=== PATIENT | female | born 1955 | race Caucasian/White ===

== ENCOUNTER 2021-07-16 10:04 | Inpatient (IN) | payer OTHER ==
--- OUTSIDE RECORDS SUMMARY | 2021-07-16 10:07 | XMS REPORT | Continuity of Care Document ---
:1955 Author Organization [facility] t Address [address] [place] [address] Care Team Providers Name Role Phone ANITRA EMERY Primary Care Physician Unavailable ANITRA EMERY Attending Clinician Unavailable Payers Payer Name Policy Type Policy Number Effective Date Expiration Date S lorena [employer] [id number] 2019 00:00:00 Problems This patient has no known problems. Allergies, Adverse Reactions, Alerts Allergy Allergy Status Severity Reaction(s) Onset Inactive Treating Comm ents Source Name Type Date Date Clinician IODINE Allergy Active Other [facility] AND 11-28 IODIDE 00:00: CONTAINI 00 NG PRODUCTS Medications This patient has no known medications. Vital Signs Vital Name Observation Time Observation Value Comments Source HEIGHT 2021-02-15 14:50:00 157.5 cm WEIGHT 2021-02-15 14:50:00 118.48 kg HEIGHT 2020-11-16 13:51:00 157.5 cm WEIGHT 2020-11-16 13:51:00 117.708 kg HEIGHT 2020-07-31 15:15:00 157.5 cm WEIGHT 2020-07-31 15:15:00 120.203 kg WEIGHT 2020-01-17 00:00:00 121.836 kg Procedures This patient has no known procedures. Encounters Start End Encounter Admission Attending Care Care Encounter Source Date/Time Date/Time Type Type Clinicians Facility Department ID 2021-05-31 2021-05-31 Outpatient [facility] [id number] [address] 00:00:00 00:00:00 [facility] 2021-02-15 2021-02-15 Outpatient [facility] [id number] 00[facility]00:00 00:00:00 [facility] 2020-12-01 2020-12-01 Outpatient [facility]ULY, [facility] [id number] 00:00:00 00:00:00 [facility] 2020-11-16 2020-11-16 Outpatient [facility]UL[facility] [id number] 00:00:00 00:00:00 [facility] 2020-07-31 2020-07-31 Outpatient [facility] [id number] 00:00:00 00:00:00 [facility] 2020-05-01 2020-05-01 Outpatient [facility] [id number] 00:00:00 00:00:00 [facility] 2020-02-06 2020-02-06 Outpatient MELYSSA EMERY, [facility] [id number] [facility] 00:00[facility] 00[facility]00 [facility] 2020-01-30 2020-01-30 Outpatient YULY, [facility] [id number] [facility] 00:00:00 00:00:00 [facility] 2020-01-30 2020-01-30 Outpatient MELYSSA EMERY, [facility] [id number] [facility] 00:00:00 00:00:00 [facility] 2020-01-23 2020-01-23 Outpatient EL [facility] [id number] [facility] 00:00:00 00:00:00 2020-01-17 2020-01-17 Outpatient [facility] [id number] 00:00[facility]00 00:00:00 [id number] [facility] 2020-01-17 2020-01-17 Outpatient [facility]ULY[facility] [id number] 00:00:00 00:00:00 [facility] 2018-11-06 2018-11-06 Outpatient [facility] [id number] [place] 00:00:00 00:00:00 Health 2018-06-08 2018-06-08 Outpatient [facility] [id number] [place] 00:00:00 00:00:00 Health 2018-05-30 2018-05-30 Outpatient [facility] [id number] [place] 00:00:00 00:00:00 [facility] 2018 2018 Outpatient [facility] [id number] [place] 00:00:00 00:00:00 [facility] 2018-05-18 2018-05-18 Outpatient [facility] [id number] [place] 12:59:36 12:59:36 [facility] 2018-05-17 2018-05-17 Outpatient [facility] [id number] [place] 10:19:25 10:19:25 [facility] 2018-05-17 2018-05-17 Outpatient [facility] [id number] [place] 10:09:31 10:09:31 [facility] 2018-05-16 2018-05-16 Outpatient [facility] [id number] [place] 00:00:00 00:00:00 [facility] 2018-05-14 2018-05-14 Outpatient [facility] [id number] [place] 00:00:00 00:00:00 [facility] 2018-05-09 2018-05-09 Outpatient [facility] [id number] [place] 13:04:39 13:04:39 [facility] 2018-05-09 2018-05-09 Outpatient [facility] [id number] [place] 11:56:43 11:56:43 [facility] 2018-04-26 2018-04-26 Outpatient [facility] [id number] [place] 00:00:00 00:00:00 [facility] 2018-04-24 2018-04-24 Outpatient [facility] [id number] [place] 12:36:46 12:36:46 [facility] 2018-04-24 2018-04-24 Outpatient [facility] [id number] [place] 11:34:13 11:34:13 [facility] 2018-04-13 2018-04-13 Outpatient [facility] [id number] [place] 00:00:00 00:00:00 [facility] 2018-04-09 2018-04-09 Outpatient [facility] [id number] [place] 00:00:00 00:00:00 [facility] 2018-04-09 2018-04-09 Outpatient [facility] [id number] [place] 00:00:00 00:00:00 [facility] 2018-04-02 2018-04-02 Outpatient [facility] [id number] [place] 09:56:20 09:56:20 [facility] 2018-03-27 2018-03-27 Outpatient [facility] [id number] [place] 13:35:42 13:35:42 [facility] 2018-03-12 2018-03-12 Outpatient [facility] [id number] [place] 00:00:00 00:00:00 [facility] 2018-03-12 2018-03-12 Outpatient [facility] [id number] [place] 00:00:00 00:00:00 [facility] 2018-03-12 2018-03-12 Outpatient [facility] [id number] [place] 00:00:00 00:00:00 [facility] 2018-03-06 2018-03-06 Outpatient [facility] [id number] [place] 08:53:09 08:53:09 [facility] 2018-02-19 2018-02-19 Outpatient [facility] [id number] [place] 09:40:24 09:40:24 [facility] 2018-02-19 2018-02-19 Outpatient [facility] [id number] [place] 08:47:43 08:47:43 [facility] 2018-02-19 2018-02-19 Outpatient [facility] [id number] [place] 00:00:00 00:00:00 [facility] 2018-02-16 2018-02-16 Outpatient [facility] [id number] [place] 00:00:00 00:00:00 [facility] 2018-02-15 2018-02-15 Outpatient [facility] [id number] [place] 00:00:00 00:00:00 [facility] 2018-02-12 2018-02-12 Outpatient [facility] [id number] [place] 14:32:28 14:32:28 [facility] 2018-02-12 2018-02-12 Outpatient [facility] [id number] [place] 13:10:55 13:10:55 [facility] 2018-02-12 2018-02-12 Outpatient [facility] [id number] [place] 00:00:00 00:00:00 [facility] 2018-02-12 2018-02-12 Outpatient [facility] [id number] [place] 00:00:00 00:00:00 [facility] 2018-02-12 2018-02-12 Outpatient [facility] [id number] [place] 00:00:00 00:00:00 [facility] 2018-02-12 2018-02-12 Outpatient [facility] [id number] [place] 00:00:00 00:00:00 [facility] 2018-02-05 2018-02-05 Outpatient [facility] [id number] [place] 00:00:00 00:00:00 [facility] 2018-02-05 2018-02-05 Outpatient [facility] [id number] [place] 00:00:00 00:00:00 [facility] 2018-01-25 2018-01-25 Outpatient [facility] [id number] [place] 10:15:17 10:15:17 [facility] 2018-01-25 2018-01-25 Outpatient [facility] [id number] [place] 00:00:00 00:00:00 [facility] 2018-01-23 2018-01-23 Outpatient [facility] [id number] [place] 11:58:10 11:58:10 [facility] 2018-01-19 2018-01-19 Outpatient [facility] [id number] [place] 00:00:00 00:00:00 [facility] 2018-01-17 2018-01-17 Outpatient [facility] [id number] [place] 10:09:29 10:09:29 [facility] 2018-01-17 2018-01-17 Outpatient [facility] [id number] [place] 00:00:00 00:00:00 [facility] 2017-11-22 2017-11-22 Outpatient [facility] [id number] [place] 14:33:58 14:33:58 [facility] 2017-11-15 2017-11-15 Outpatient [facility] [id number] [place] 13:34:47 13:34:47 [facility] 2017-11-15 2017-11-15 Outpatient [facility] [id number] [place] 12:40:27 12:40:27 [facility] 2017-11-08 2017-11-08 Outpatient [facility] [id number] [place] 16:03:05 16:03:05 [facility] 2017-11-08 2017-11-08 Outpatient [facility] [id number] [place] 15:18:47 15:18:47 [facility] 2017-11-07 2017-11-07 Outpatient [facility] [id number] [place] 00:00:00 00:00:00 [facility] 2017-09-15 2017-09-15 Outpatient [facility] [id number] [place] 12:39:22 12:39:22 [facility] 2017-09-08 2017-09-08 Outpatient [facility] [id number] [place] 09:39:54 09:39:54 [facility] 2017-07-04 2017-07-04 Outpatient [facility] [id number] [place] 13:03:48 13:03:48 [facility] 2017-06-21 2017-06-21 Outpatient [facility] [id number] [place] 14:36:40 14:36:40 [facility] 2017-06-21 2017-06-21 Outpatient [facility] [id number] [place] 00:00:00 00:00:00 [facility] 2017-06-15 2017-06-15 Outpatient [facility] [id number] [place] 13:19:27 13:19:27 [facility] 2017-05-11 2017-05-11 Outpatient [facility] [id number] [place] 00:00:00 00:00:00 [facility] 2017-04-17 2017-04-17 Outpatient [facility] [id number] [place] 00:00:00 00:00:00 [facility] 2017-04-12 2017-04-12 Outpatient [facility] [id number] [place] 14:19:41 14:19:41 [facility] 2017-04-05 2017-04-05 Outpatient [facility] [id number] [place] 15:51:02 15:51:02 [facility] 2017-04-05 2017-04-05 Outpatient [facility] [id number] [place] 15:09:21 15:09:21 [facility] 2017-03-21 2017-03-21 Outpatient [facility] [id number] [place] 13:09:42 13:09:42 [facility] 2017-03-15 2017-03-15 Outpatient [facility] [id number] 00:00:00 00:00:00 [facility] 2017-03-10 2017-03-10 Outpatient [facility] [id number] [place] 14:53:57 14:53:57 [facility] 2017-03-06 2017-03-06 Outpatient [facility] [id number] [place] 00:00:00 00:00:00 [facility] 2017-03-02 2017-03-02 Outpatient [facility] [id number] [place] 10:34:06 10:34:06 [facility] 2017-02-20 2017-02-20 Outpatient [facility] [id number] [place] 13:02:41 13:02:41 [facility] 2017-02-14 2017-02-14 Outpatient [facility] [id number] [place] 00:00:00 00:00:00 [facility] 2017-02-13 2017-02-13 Outpatient [facility] [id number] [place] 14:08:25 14:08:25 [facility] 2017-02-09 2017-02-09 Outpatient [facility] [id number] [place] 10:01:38 10:01:38 [facility] 2017-01-19 2017-01-19 Outpatient [facility] [id number] [place] 00:00:00 00:00:00 [facility] 2017-01-06 2017-01-06 Outpatient [facility] [id number] [place] 11:15:38 11:15:38 [facility] 2017-01-04 2017-01-04 Outpatient [facility] [id number] [place] 13:12:17 13:12:17 [facility] 2016-12-19 2016-12-19 Outpatient [facility] [id number] [place] 09:11:30 09:11:30 Health Results Test Description Test Time Test Comments Results Result [facility] e Comments MM, DIGITAL, 2020-02-14 Diagnostic MRN#: [id number], SCREENING, 15:16:00 workup per [id number] - WITH SAAD, radiologist?->Ye MM, DIGITAL, MAMMO, BILATERAL sReason for SCREENING, WITH INCLUDING CAD Exam:->visit for SAAD, BILATERAL screening INCLUDING CAD BILATERAL DIGITAL SCREENING MAMMOGRAM 3D/2D WITH CAD: 02/06/2020 Comparison is made to exams dated: 02/20/2017 mammogram and 02/18/2016 mammogram - [facility]. There are scattered fibroglandular elements in both breasts that could obscure a lesion on mammography. Tomosynthesis 3D imaging of the breast was also performed. Current study was also evaluated with a Computer Aided Detection (CAD) system. No significant masses, calcifications, or other findings are seen in either breast. There has been no significant interval change. IMPRESSION: NEGATIVEThere is no mammographic evidence of malignancy. A 1 year screening mammogram is recommended. Anamika Santana M.D. as/penrad:02/14/2020 15:16:32 Normal BiRad 1-2 Mammogram BI-RADS: 1 Negative , SPINE, 2020-01-30 Reason for FINAL REPORT PATIENT LUMBAR, COMPLETE 15:31:00 Exam:->mid and ID: [id number] (MIN 4 VIEWS) lower back pain Lumbar spine series History provided: Back pain The quality of the radiographs is degraded by the patient's large body habitus. Lumbar vertebra show no fracture or subluxation. Rotatory curvature of the lower thoracic and upper lumbar spine convex to the left. No significant disc space narrowing. Signed: Richard Hunter MDReport Verified Date/Time: 01/30/2020 15:31:10 Reading Location: [facility] Diagnostic Imaging Reading Room - [facility] 1.310.12 , SPINE, 2020-01-30 Reason for FINAL REPORT PATIENT THORACIC, 2 VIEWS 15:31:00 Exam:->mid back ID: [id number] pain Thoracic spine 2 views History provided: Back pain Generalized kyphotic curvature of the thoracic spine. No fracture or subluxation. No lytic or blastic findings. Signed: Richard Hunter Verified Date/Time: 01/30/2020 15:31:55 Reading Location: [facility] Diagnostic Imaging Reading Room - [facility] 1.310.12
[2021-07-16 11:53] LABS: Absolute Lymphocytes (CBC) 0.6 K/uL (0.7-4.9); Basophils % 0.5 % (0-1.3); Hematocrit 35.5 % (36.0-45.0); Lymphocytes % 5.2 % (15.3-44.8); MPV 8.1 fL (7.6-11.3); RBC Red Blood Cell Count 4.89 M/uL (3.86-4.86)
[2021-07-16 12:05] LABS: Albumin 3.8 g/dL (3.4-5.0); Bilirubin Direct 0.2 mg/dL (0-0.2); Bilirubin Total 0.7 mg/dL (0.2-1.0); Potassium 5.4 mmol/L (3.5-5.1); Protein, Total 7.8 g/dL (6.4-8.2)
--- NOTE | 2021-07-16 12:16 | RAD REPORT ---
EXAM DESCRIPTION: CT - Abdomen Pelvis Wo Contrast - 07/16/2021 11:54 am CLINICAL HISTORY: Abdominal pain COMPARISON: None TECHNIQUE: Computed axial tomography of the abdomen and pelvis was obtained. IV and oral contrast we re not requested. All CT scans are performed using dose optimization technique as appropriate and may include automated exposure control or mA/KV adjustment according to patient size. FINDINGS: The evaluation of solid organs, vessels and bowel is limited secondary to the lack of con trast administration. Umbilical hernia contains transverse colon. The colon distal to the hernia is decompressed. The colon within the hernia and ascending colon is mildly dilated containing stool. The neck of the hernia gareth sures 3.3 centimeters. The liver, spleen, pancreas, adrenals and kidneys appear grossly normal. There is no evidence of diverticulitis. Cholecystectomy IMPRESSION: Umbilical hernia resulting in an obstruction of the transverse colon
[2021-07-16] MEDS ORDERED: ONDANSETRON 4 MG/2 ML VIAL ONE ×2 (12:21→16:55)
[2021-07-16] MEDS ORDERED: MORPHINE 4 MG/ML SYR ONE ×2 (12:21→16:55)
[2021-07-16] MEDS ORDERED: NA CHLORIDE 0.9% 500 ML ONE (12:21)
[2021-07-16] MEDS ORDERED: GLUCAGON 1 MG/VIAL IM PRN (12:48)
[2021-07-16] MEDS ORDERED: D50W 25 GM/50 ML SYRINGE IV PRN (12:48)
[2021-07-16] MEDS ORDERED: INSULIN -REGULAR HUMAN 100 UNIT in NA CHLORIDE 0.9% 100 ML IV SCH (13:00)
[2021-07-16] MEDS ORDERED: INSULIN -REGULAR HUMAN 50 UNIT/0.5 ML ML ONE (13:03)
[2021-07-16] MEDS ORDERED: NA CHLORIDE 0.9% 100 ML ONE ×2 (13:06→21:01)
[2021-07-16] MEDS ORDERED: PIPERACIL/TAZO 3.375 GM VIAL IV ONE (13:06)
[2021-07-16] MEDS ORDERED: NA CHLORIDE 0.9% 1,000 ML ONE (13:11)
--- NOTE | 2021-07-16 13:11 | ER ---
Nurse's Notes [facility] Name: Radha Jean Age: 66 yrs Sex: Female : 1955 Arrival Date: 07/16/2021 Time: 10:06 Bed 27 Private MD: Diagnosis: Bowel obstruction, DKA Presentation: 07/16 10:18 Chief complaint: Patient states: lower abd pain and constipation that began last night. ss Pt reports a HX of an abd hernia and sttates that is where most of her pain is originating from. Nausea that began this am. Last BM was a very small amount last night. Coronavirus screen: Client denies travel out of the [place] in the last 14 days. Ebola Screen: Patient denies exposure to infectious person. Patient denies travel to an Ebola-affected area in the 21 days before illness onset. Initial Sepsis Screen: Does the patient meet any 2 criteria? No. Patient's initial sepsis screen is negative. Does the patient have a suspected source of infection? No. Patient's initial sepsis screen is negative. Risk Assessment: Do you want to hurt yourself or someone else? Patient reports no desire to harm self or others. Onset of symptoms was July 15, 2021. 10:18 Method Of Arrival: Wheelchair ss 10:18 Acuity: EZIO 3 ss Triage Assessment: 19:35 General: Appears in no apparent distress. comfortable. mr2 Historical: - Allergies: 10:23 Iodine; ss - PMHx: 10:23 Hypertensive disorder; Hypothyroidism; Diabetes mellitus; abd hernia; Thyroid CA; ss - PSHx: 10:23 Thyroidectomy; Cholecystectomy; R ankle recon; ss - Immunization history:: Client reports receiving the 2nd dose of the Covid vaccine. - Social history:: Smoking status: Patient denies any tobacco usage or history of. Screenin:29 Abuse screen: Denies threats or abuse. Abuse screen: Denies threats or abuse. vg1 Nutritional screening: No deficits noted. Tuberculosis screening: No symptoms or risk factors identified. Fall Risk No fall in past 12 months (0 pts). No secondary diagnosis (0 pts). IV access (20 points). Ambulatory Aid- None/Bed Rest/Nurse Assist (0 pts). Gait- Normal/Bed Rest/Wheelchair (0 pts) Mental Status- Oriented to own ability (0 pts). Total Soto Fall Scale indicates No Risk (0-24 pts). Assessment: 11:27 General: Appears in no apparent distress. uncomfortable, Behavior is calm, cooperative. vg1 Pain: Complains of pain in umbilical area, right lower quadrant and left lower quadrant Pain currently is 10 out of 10 on a pain scale. Pain began 1 day ago. Noted to be grimacing, guarding. Neuro: Level of Consciousness is awake, alert, obeys commands, Oriented to person, place, time, situation. Cardiovascular: Patient's skin is warm and dry. Respiratory: Airway is patent Respiratory effort is even, unlabored. GI: Abdomen is flat, obese, Bowel sounds present X 4 quads. Abdomen is tender to palpation in umbilical area, right lower quadrant and left lower quadrant Reports constipation, nausea, vomiting, since yesterday 07/15/21 last BM was 07/14/21 Patient currently denies diarrhea. : No signs and/or symptoms were reported regarding the genitourinary system. EENT: No signs and/or symptoms were reported regarding the EENT system. Derm: Skin is intact, is healthy with good turgor. Musculoskeletal: Circulation, motion, and sensation intact. 12:41 Reassessment: Patient appears in no apparent distress at this time. No changes from vg1 previously documented assessment. Patient and/or family updated on plan of care and expected duration. Pain level reassessed. Patient is alert, oriented x 3, equal unlabored respirations, skin warm/dry/pink. 14:13 Reassessment: Patient appears in no apparent distress at this time. No changes from vg1 previously documented assessment. Patient and/or family updated on plan of care and expected duration. Pain level reassessed. Patient is alert, oriented x 3, equal unlabored respirations, skin warm/dry/pink. 15:42 Reassessment: Patient appears in no apparent distress at this time. Patient and/or vg1 family updated on plan of care and expected duration. Pain level reassessed. Patient is alert, oriented x 3, equal unlabored respirations, skin warm/dry/pink. At 1320 administered the Insulin drip at 10 units/ hr per protocol. At 1420 BG was 488 and decreased Insulin drip to 5 units/hr per protocol. At 1535 BG was 429 and increased Insulin drip to 6 units/ hr per protocol. Pt states ABD pain. Provider notified.. 16:44 Reassessment: Patient appears in no apparent distress at this time. Patient and/or vg1 family updated on plan of care and expected duration. Pain level reassessed. Patient is alert, oriented x 3, equal unlabored respirations, skin warm/dry/pink. Pt BG 382 increased Insulin drip to 7 units/ hr per protocol. pt c/o back pain. provider notified. 16:52 Reassessment: Received VO from Dr Fuentes to administer zofran 4 mg IVP x1 and Morphine vg1 4 mg IVP x1; to place a hay for pt due to pt unable to urinate for approximately 3.5 hours. 17:40 Reassessment: Patient appears in no apparent distress at this time. Patient and/or vg1 family updated on plan of care and expected duration. Pain level reassessed. Patient is alert, oriented x 3, equal unlabored respirations, skin warm/dry/pink. Rates pain 5/10; BG was 305 and Insulin drip rate at 7 units/ hr per protocol. 18:32 Reassessment: Patient appears in no apparent distress at this time. Patient and/or vg1 family updated on plan of care and expected duration. Pain level reassessed. Patient is alert, oriented x 3, equal unlabored respirations, skin warm/dry/pink. BG 319; Insulin drip at 8 units/hr per protocal. Vital Signs: 10:18 BP 120 / 53; Pulse 99; Resp 16; Temp 98.3(TE); Pulse Ox 100% on R/A; Weight 117.93 kg; ss Height 5 ft. 3 in. (160.02 cm); Pain 10/10; 11:30 BP 127 / 56; Pulse 102; Resp 18; Pulse Ox 99% ; vg1 12:34 BP 118 / 45; Pulse 96; Resp 18; Temp 98.6(O); Pulse Ox 99% ; mh5 13:00 BP 106 / 48; Pulse 91; Resp 20; Pulse Ox 98% ; vg1 15:38 BP 123 / 56; Pulse 98; Resp 20; Pulse Ox 99% ; vg1 16:30 BP 126 / 56; Pulse 98; Resp 20; Pulse Ox 99% ; vg1 17:30 BP 124 / 54; Pulse 98; Resp 18; Pulse Ox 100% ; vg1 18:00 BP 120 / 55; Pulse 92; Resp 16; Pulse Ox 99% ; vg1 10:18 Body Mass Index 46.06 (117.93 kg, 160.02 cm) ED Course: 10:06 Patient arrived in ED. as 10:10 Dakota Fuentes MD is Attending Physician. kdr 10:23 Triage completed. ss 10:23 Arm band placed on right wrist. ss 11:04 Jackie August, RN is Primary Nurse. vg1 11:19 Missed attempt(s): 20 gauge in left antecubital area. vg1 11:26 Initial lab(s) drawn, by me, sent to lab. Inserted saline lock: 22 gauge in right vg1 antecubital area, using aseptic technique. Blood collected. 11:29 Patient has correct armband on for positive identification. Bed in low position. Call vg1 light in reach. Side rails up X2. Adult w/ patient. 11:54 CT Abd/Pelvis - Without Contrast In Process Unspecified. EDMS 13:08 Shabana Rivera MD is Hospitalizing Provider. kdr 13:56 Inserted saline lock: 22 gauge in left antecubital area, using aseptic technique. vg1 13:57 COVID swab sent to lab. vg1 17:06 Hay cath inserted, using sterile technique, 16 Fr., by me, balloon inflated, to vg1 gravity drainage, returned gianna urine. Patient tolerated well. 19:14 Report given to BART LI. vg1 Administered Medications: 12:35 Drug: Zofran (Ondansetron) 4 mg Route: IVP; Site: right antecubital; vg1 13:58 Follow up: Response: No adverse reaction; Marked relief of symptoms vg1 12:35 Drug: NS 0.9% 500 ml Route: IV; Rate: bolus; Site: right antecubital; vg1 13:58 Follow up: IV Status: Completed infusion; IV Intake: 500ml vg1 12:37 Drug: morphine 4 mg Route: IVP; Site: right antecubital; vg1 13:58 Follow up: Response: No adverse reaction; Marked relief of symptoms vg1 13:10 Drug: Insulin Regular Human 10 units {Co-Signature: bp (Maldonado Hernandez RN).} Route: IVP; vg1 Site: right antecubital; 16:50 Follow up: Response: Blood sugar is lowered vg1 13:18 Drug: NS 0.9% 1000 ml Route: IV; Rate: 125 ml/hr; Site: right antecubital; vg1 13:20 Drug: Insulin Drip - (Insulin Regular Human 100 units, NS 0.9% 100 ml) {Co-Signature: vg1 bp (Maldonado Hernandez RN).} Route: IV; Rate: calculated rate; Site: right antecubital; 14:07 Drug: Zosyn (piperacillin-tazobactam) 3.375 grams Route: IVPB; Infused Over: 60 mins; vg1 Site: left antecubital; 16:51 Follow up: IV Status: Completed infusion; IV Intake: 100ml vg1 17:08 Drug: Zofran (Ondansetron) 4 mg Route: IVP; Site: left antecubital; vg1 17:10 Drug: morphine 4 mg Route: IVP; Site: left antecubital; vg1 Intake: 13:58 IV: 500ml; Total: 500ml. vg1 16:51 IV: 100ml; Total: 600ml. vg1 Output: 17:21 Urine: 600ml (Hay); Total: 600ml. vg1 Outcome: 13:11 Decision to Hospitalize by Provider. kdr 07/18 15:50 Patient left the ED. em1 Signatures: Dispatcher [employer] EDMS Dakota Fuentes MD MD kdr Martinez, Amelia as Martinez, Eric em1 Jocelyn Donahue RN RN ss Martinez, Maria Jackie Alvarado RN RN vg1 Bart Anna RN RN mr2 Maldonado Hernandez RN bp Corrections: (The following items were deleted from the chart) 07/16 12:40 12:35 NS 0.9% 500 ml IV at bolus in left antecubital vg1 vg1
--- NOTE | 2021-07-16 13:12 | EDPHYS ---
Physician Documentation [facility] Name: Radha Jean Age: 66 yrs Sex: Female : 1955 Arrival Date: 07/16/2021 Time: 10:06 Bed 27 Private MD: ED Physician Dakota Fuentes HPI: 07/16 11:36 This 66 yrs old Female presents to ER via Wheelchair with complaints of Constipation, kdr Vomiting. 11:36 The patient presents to the emergency department with nausea, that is mild, vomiting, kdr that is intermittent, abdominal pain, of the umbilical area. Onset: The symptoms/episode began/occurred last night. Possible causes: Incarcerated umbilical hernia. The symptoms are aggravated by movement, pressure, The symptoms are alleviated by nothing. Associated signs and symptoms: Pertinent positives: abdominal pain, nausea, vomiting. Severity of symptoms: At their worst the symptoms were mild moderate just prior to arrival, in the emergency department the symptoms are unchanged. The patient has experienced similar episodes in the past, a few times, Normally she can reduce her umbilical hernia, she is able to resolve the issue but has not been able to do so this time. The patient has not recently seen a physician. Patient started to have abdominal pain last evening. She had some nausea vomiting with it. She does not believe she has been passing any stool or gas since the onset of the pain. She has a history of a periumbilical hernia which normally she is able to reduce and resolve any associated discomfort. This time however she has not been able to reduce the hernia or resolve her discomfort. Historical: - Allergies: 10:23 Iodine; ss - PMHx: 10:23 Hypertensive disorder; Hypothyroidism; Diabetes mellitus; abd hernia; Thyroid CA; ss - PSHx: 10:23 Thyroidectomy; Cholecystectomy; R ankle recon; ss - Immunization history:: Client reports receiving the 2nd dose of the Covid vaccine. - Social history:: Smoking status: Patient denies any tobacco usage or history of. ROS: 11:36 Constitutional: Negative for fever, chills, and weight loss, Eyes: Negative for injury, kdr pain, redness, and discharge, Neck: Negative for injury, pain, and swelling, Cardiovascular: Negative for chest pain, palpitations, and edema, Respiratory: Negative for shortness of breath, cough, wheezing, and pleuritic chest pain, Back: Negative for injury and pain, : Negative for injury, bleeding, discharge, and swelling, MS/Extremity: Negative for injury and deformity, Skin: Negative for injury, rash, and discoloration, Neuro: Negative for headache, weakness, numbness, tingling, and seizure activity. Psych: Negative for depression, anxiety, suicide ideation, homicidal ideation, and hallucinations, Allergy/Immunology: Negative for hives, rash, and allergies, Endocrine: Negative for neck swelling, polydipsia, polyuria, polyphagia, and marked weight changes, Hematologic/Lymphatic: Negative for swollen nodes, abnormal bleeding, and unusual bruising. 11:36 Abdomen/GI: Positive for abdominal pain, nausea and vomiting, constipation, Negative for rectal pain, rectal bleeding, bowel incontinence. Exam: 11:36 Constitutional: This is a well developed, well nourished patient who is awake, alert, kdr and in no acute distress. Head/Face: Normocephalic, atraumatic. Eyes: Pupils equal round and reactive to light, extra-ocular motions intact. Lids and lashes normal. Conjunctiva and sclera are non-icteric and not injected. Cornea within normal limits. Periorbital areas with no swelling, redness, or edema. Neck: Trachea midline, no thyromegaly or masses palpated, and no cervical lymphadenopathy. Supple, full range of motion without nuchal rigidity, or vertebral point tenderness. No Meningismus. Chest/axilla: Normal chest wall appearance and motion. Nontender with no deformity. No lesions are appreciated. Cardiovascular: Regular rate and rhythm with a normal S1 and S2. No gallops, murmurs, or rubs. Normal PMI, no JVD. No pulse deficits. Respiratory: Lungs have equal breath sounds bilaterally, clear to auscultation and percussion. No rales, rhonchi or wheezes noted. No increased work of breathing, no retractions or nasal flaring. Back: No spinal tenderness. No costovertebral tenderness. Full range of motion. Skin: Warm, dry with normal turgor. Normal color with no rashes, no lesions, and no evidence of cellulitis. MS/ Extremity: Pulses equal, no cyanosis. Neurovascular intact. Full, normal range of motion. Neuro: Awake and alert, GCS 15, oriented to person, place, time, and situation. Cranial nerves II-XII grossly intact. Motor strength 5/5 in all extremities. Sensory grossly intact. Cerebellar exam normal. Normal gait. Psych: Awake, alert, with orientation to person, place and time. Behavior, mood, and affect are within normal limits. Vital Signs: 10:18 BP 120 / 53; Pulse 99; Resp 16; Temp 98.3(TE); Pulse Ox 100% on R/A; Weight 117.93 kg; ss Height 5 ft. 3 in. (160.02 cm); Pain 10/10; 11:30 BP 127 / 56; Pulse 102; Resp 18; Pulse Ox 99% ; vg1 12:34 BP 118 / 45; Pulse 96; Resp 18; Temp 98.6(O); Pulse Ox 99% ; mh5 13:00 BP 106 / 48; Pulse 91; Resp 20; Pulse Ox 98% ; vg1 15:38 BP 123 / 56; Pulse 98; Resp 20; Pulse Ox 99% ; vg1 16:30 BP 126 / 56; Pulse 98; Resp 20; Pulse Ox 99% ; vg1 17:30 BP 124 / 54; Pulse 98; Resp 18; Pulse Ox 100% ; vg1 18:00 BP 120 / 55; Pulse 92; Resp 16; Pulse Ox 99% ; vg1 10:18 Body Mass Index 46.06 (117.93 kg, 160.02 cm) Procedures: 11:36 Performed Umbilical hernia reduction. Attempted to reduce the hernia with direct kdr pressure. Patient was laid more flat and pressure applied to the hernia area. The center of the umbilicus was a dark purple. After several minutes of attempting to reduce the hernia, the patient was not able to tolerate the procedure further. Will await CAT scan result. MDM: 13:11 Patient medically screened. kdr 13:12 Data reviewed: vital signs, nurses notes, lab test result(s), radiologic studies. kdr Counseling: I had a detailed discussion with the patient and/or guardian regarding: the historical points, exam findings, and any diagnostic results supporting the discharge/admit diagnosis, lab results, radiology results, the need for further work-up and treatment in the hospital. 15:47 ED course: [place] [facility] [place] that given the kdr patient's anion gap, she was too unstable for transfer at this time. Further they had no ICU beds available at this time. Given that [facility] had no beds available and the patient was unstable for transfer, the patient will remain here in [place] for further care and treatment. 07/16 11:32 Order name: Basic Metabolic Panel; Complete Time: 12:21 kdr 07/16 11:32 Order name: CBC with Diff; Complete Time: 14:24 kdr 07/16 11:32 Order name: Hepatic Function; Complete Time: 12:21 kdr 07/16 11:32 Order name: Lipase; Complete Time: 12:21 kdr 07/16 13:28 Order name: COVID-19 SARS RT PCR (Document "Date of Onset" if Symptomatic) ss 07/16 13:28 Order name: SARS-COV-2 RT PCR; Complete Time: 17:18 EDUT 07/16 13:44 Order name: CBC Smear Scan; Complete Time: 14:24 EDUT 07/16 14:37 Order name: Glucose, Ancillary Testing; Complete Time: 17:18 EDUT 07/16 15:49 Order name: Glucose, Ancillary Testing; Complete Time: 17:18 EDUT 07/16 16:53 Order name: Glucose, Ancillary Testing; Complete Time: 17:18 EDUT 07/16 17:53 Order name: Glucose, Ancillary Testing EDUT 07/16 18:41 Order name: Glucose, Ancillary Testing EDUT 07/16 19:58 Order name: BMP mr2 07/16 20:30 Order name: Basic Metabolic Panel EDUT 07/16 21:47 Order name: Glucose, Ancillary Testing EDUT 07/16 22:09 Order name: Urinalysis EDUT 07/16 22:16 Order name: Acetone Level EDUT 07/16 22:56 Order name: ABG Arterial Blood Gas EDUT 07/16 22:57 Order name: Glucose, Ancillary Testing EDUT 07/17 00:02 Order name: Glucose, Ancillary Testing EDUT 07/17 00:43 Order name: Glucose, Ancillary Testing EDUT 07/17 01:43 Order name: Glucose, Ancillary Testing EDUT 07/17 02:25 Order name: Acetone Level EDUT 07/17 02:30 Order name: CBC with Automated Diff EDUT 07/17 02:33 Order name: Basic Metabolic Panel EDUT 07/17 02:33 Order name: Lipid Profile EDUT 07/17 02:33 Order name: Magnesium EDUT 07/17 03:07 Order name: Glucose, Ancillary Testing EDUT 07/17 03:11 Order name: Osmolality, Serum EDUT 07/17 03:52 Order name: Glucose, Ancillary Testing [facility] 07/16 11:32 Order name: IV Saline Lock; Complete Time: 11:33 kdr 07/16 11:32 Order name: CT Abd/Pelvis - Without Contrast; Complete Time: 12:58 kdr 07/17 04:45 Order name: Glucose, Ancillary Testing EDUT 07/17 05:16 Order name: Glucose, Ancillary Testing EDUT 07/17 06:40 Order name: Glucose, Ancillary Testing [facility] 07/17 08:23 Order name: Glucose, Ancillary Testing [facility] 07/17 08:27 Order name: Glucose, Ancillary Testing [facility] 07/17 09:30 Order name: Glucose, Ancillary Testing [facility] 07/17 10:28 Order name: Glucose, Ancillary Testing [facility] 07/17 11:32 Order name: Glucose, Ancillary Testing [facility] 07/17 12:03 Order name: Glucose, Ancillary Testing [facility] 07/17 13:24 Order name: Glucose, Ancillary Testing [facility] 07/17 14:08 Order name: Glucose, Ancillary Testing [facility] 07/17 16:25 Order name: Glucose, Ancillary Testing [facility] 07/17 17:28 Order name: Glucose, Ancillary Testing [facility] 07/17 17:41 Order name: Basic Metabolic Panel [facility] 07/17 22:37 Order name: Glucose, Ancillary Testing [facility] 07/18 08:48 Order name: Glucose, Ancillary Testing [facility] 07/18 12:24 Order name: Glucose, Ancillary Testing [facility] 07/18 12:37 Order name: CBC with Automated Diff [facility] 07/18 13:01 Order name: Comprehensive Metabolic Panel [facility] 07/18 14:35 Order name: Blood Culture [facility] 07/18 14:36 Order name: Glucose, Ancillary Testing [facility] 07/16 11:32 Order name: Labs collected and sent; Complete Time: 11:33 kdr 07/16 16:52 Order name: Hugo; Complete Time: 17:19 vg1 Administered Medications: 12:35 Drug: Zofran (Ondansetron) 4 mg Route: IVP; Site: right antecubital; vg1 13:58 Follow up: Response: No adverse reaction; Marked relief of symptoms vg1 12:35 Drug: NS 0.9% 500 ml Route: IV; Rate: bolus; Site: right antecubital; vg1 13:58 Follow up: IV Status: Completed infusion; IV Intake: 500ml vg1 12:37 Drug: morphine 4 mg Route: IVP; Site: right antecubital; vg1 13:58 Follow up: Response: No adverse reaction; Marked relief of symptoms vg1 13:10 Drug: Insulin Regular Human 10 units {Co-Signature: bp (Maldonado Hernandez RN).} Route: IVP; vg1 Site: right antecubital; 16:50 Follow up: Response: Blood sugar is lowered vg1 13:18 Drug: NS 0.9% 1000 ml Route: IV; Rate: 125 ml/hr; Site: right antecubital; vg1 13:20 Drug: Insulin Drip - (Insulin Regular Human 100 units, NS 0.9% 100 ml) {Co-Signature: vg1 bp (Maldonado Hernandez RN).} Route: IV; Rate: calculated rate; Site: right antecubital; 14:07 Drug: Zosyn (piperacillin-tazobactam) 3.375 grams Route: IVPB; Infused Over: 60 mins; vg1 Site: left antecubital; 16:51 Follow up: IV Status: Completed infusion; IV Intake: 100ml vg1 17:08 Drug: Zofran (Ondansetron) 4 mg Route: IVP; Site: left antecubital; vg1 17:10 Drug: morphine 4 mg Route: IVP; Site: left antecubital; vg1 Disposition Summary: 07/16/21 13:11 Hospitalization Ordered Hospitalization Status: Inpatient Admission kdr Provider: Shabana Rivera kdr Condition: Fair kdr Problem: new kdr Symptoms: have improved kdr Bed/Room Type: Standard kdr Location: Telemetry/MedSurg (Inpatient)(07/18/21 12:39) jaMagalys Room Assignment: [facility](07/18/21 12:39) Magalys Diagnosis - Bowel obstruction, DKA kdr Forms: - Medication Reconciliation Form kdr - SBAR form kdr Signatures: Dispatcher [employer] EDMS Dakota Fuentes MD MD kdr Martinez, Eric em1 Jocelyn Donahue RN RN ss Garcia, Cindy, RN RN Mick Petit RN RN [facility] Jackie August RN RN [facility] Maldonado David RN bp Corrections: (The following items were deleted from the chart) 15:44 13:11 kdr em1 16:16 13:11 Telemetry/MedSurg (Inpatient) kdr ss 16:16 15:44 212 em1 ss 16:16 16:16 [facility] ER HOLD ss ss 16:16 16:16 ss ss 16:17 16:16 ss em1 20:37 16:16 Telemetry/MedSurg (Inpatient) ss cg 20:37 16:17 em1 cg 07/18 12:39 07/16 20:37 [facility] ER HOLD cg ja1 07/18 12:39 07/16 20:37 ERHOLD- cg ja1
[2021-07-16 13:44] LABS: Anisocytosis 2+; Blood Morphology Comment NOTED (NOT SEEN); Hypochromasia 1+; Platelet Estimate ADEQ; White Blood Cell Scan OK (OK)
--- NOTE | 2021-07-16 14:35 | CON ---
Date of Consultation: 07/16/2021 Reason For Consultation: Incarcerated umbilical hernia. History Of Present Illness: The patient is a 66-year-old female, who comes in with acute onset of ab dominal pain, nausea, and vomiting, started yesterday in the periumbilical region. She has a mass th ere. It is not reducible. She was seen in the emergency room. A CAT scan was done and was found to have an incarcerated umbilical hernia with colon in it. It was not reducible, however, her glucose is very high. She is in DKA and has been medically managed right now. She denies any sore throat, r unny nose, cough, headaches, or dizziness. No chest pain. No fever or chills. Review of Systems: Otherwise unremarkable. Past Medical History: Diabetes, hypothyroidism, hypertension, thyroid cancer, and morbid obesity. Past Surgical History: Thyroidectomy, cholecystectomy, and right ankle reconstruction. Allergies: INCLUDE IODINE. Social History: The patient does not smoke or drink alcohol. Physical Examination: Vital Signs: Stable. She is afebrile. She is awake, alert, and oriented x3. Head and Neck: Cranial nerves 2 through 12 are grossly within normal limits. No neck masses. No JV D. Throat clear. Neck supple. Chest: Clear. Heart: S1 and S2. Abdomen: Soft, nondistended. At the umbilical region, there is approximately a baseball-size mass t hat is palpable and not reducible, somewhat tense and tender. No significant erythema is seen. Extremities: Adequately perfused. Nontender. Neurologic: Nonfocal. Laboratory Data: CT of the abdomen and pelvis shows umbilical hernia resulting in an obstruction of the transverse colon consistent with the incarcerated hernia. Laboratory data reviewed. White count is 12,400 with a left shift. Chemistry shows glucose to be 609 and carbon dioxide to be 12. Assessment: Incarcerated umbilical hernia in a patient with diabetic ketoacidosis. Recommendations: If the patient decides to remain in our facility, she would need correction of her DKA followed by a surgical repair of the hernia. Risks, benefits, and alternatives were explained to the patient. However, the patient's insurance is prohibited for this facility at this time. Theref ore, I am arranging for transfer to a facility where her insurance is taken. Should that not occur, I will be happy to take care of this patient. Plan of care discussed with the ER providers. ADDISON/CORI Voice ID: [id number] Report ID: [id number]
--- NOTE | 2021-07-16 16:32 | HP ---
Date of Admission: 07/16/2021 Reason For Admission: DKA. History Of Present Illness: This is a 66-year-old female with history of multiple medical problems i ncluding diabetes, hypertension, hypothyroidism, and thyroid cancer, presented to the emergency room with new onset of severe constipation. Last bowel movement was two days ago associated with abdomina l pain around her umbilical hernia, reported nausea and vomiting. She denies any bowel movement or g as. She reported history of periumbilical hernia, which she could reduce manually, but in the last 2 4 hours, she was not able to reduce it back. In the emergency room, she was evaluated and CT of the abdomen was done in the emergency room and it showed umbilical hernia resulting in obstruction of the transverse colon. General Surgery consult requested. In the meantime, labs done and showed the pat ient with DKA with glucose at 609. Anion gap of 25. The patient was started on insulin drip and adm itted. Currently, she is lying in bed. She looks comfortable. She has no chest pain. No abdominal pain. No fever. No chills. Her son at the bedside. Review of systems, otherwise as below. Past Medical History: Significant for hypothyroidism, thyroid cancer; diabetes, on insulin; hyperten anastasia, and abdominal hernia. Past Surgical History: Known for cholecystectomy, right ankle reconstruction surgery, and thyroidect regina. Social History: She is single, has one kid. She does not drink, smoke, or use any drugs. She is li ving with her son. She is retired and used to work in [place]. Family History: Both parents . No history of cancer. Review of Systems: Denies any fever, chills, night sweats, dizziness, headache, or blurred vision. There is no shortnes s of breath, cough, or sputum. No chest pain. No palpitation. She does have abdominal pain. Denie s nausea or vomiting, diarrhea or constipation. There is no black stool or blood in the stool. No d epression, anxiety, seizure, or stroke. Physical Examination: Vital Signs: Blood pressure is 120/53, respiratory rate 16, pulse is 99, temperature 98.3, and satur ating 100% on room air. General: She is alert and oriented x3. She does not look in any distress. HEENT: Atraumatic, normocephalic. PERRLA. Oral mucosa is moist. Neck: Supple. No JVD. No carotid bruit. Chest: Clear to auscultation. Good air entry. Heart: Regular rate and rhythm. S1 and S2 normal. No gallop or murmur. Tachy. Abdomen: Soft, nontender. No masses. No hepatosplenomegaly. of her umbilicus was . There are active bowel sounds. Extremities: No clubbing or cyanosis. A +1 edema. No calf tenderness. Neurologic: Grossly intact. Laboratory Studies: Today labs CBC; white blood cell of 12.4, hemoglobin of 10.2, and platelet of 40 1. Chemistry normal except for sodium 134, potassium 5.4, carbon dioxide of 12, and glucose of 609 _ . CT as I discussed above. Assessment And Plan: This is a 66-year-old female with history of multiple medical problems, present ed with abdominal pain and constipation, found to have incarcerated hernia with high glucose __for DKA. 1.Diabetic ketoacidosis. We will admit the patient to the ICU. Start the patient on IV fluids with normal saline. Continue insulin drip until glucose at 250 and then switch to D5W half-normal saline until anion gap close. In the meantime, we will check her BMP q.4 hours. Glucose q.1 hour. We liset l provide the patient with diabetic education before discharge. We will check acetone level. Replac e her potassium as needed. 2.We will start the patient on IV antibiotic empirically with Levaquin once in the blood culture and urine culture and start the patient empirically on Levaquin. 3.Hypertension. We will resume the patient's blood pressure medication. 4.Bowel obstruction due to incarcerated hernia. Surgical consult requested. The patient will be n. p.o. and she will follow up by Dr. Parra. 5.Deep vein thrombosis prophylaxis, on Lovenox. 6.Vicodin for back pain. TATO/CORI Voice ID: [id number]
[2021-07-16] MEDS: NACHLORIDE 0.45% 1,000 ML IV SCH (21:05)
[2021-07-16] MEDS: D5 0.45 NS 1,000 ML IV SCH (21:05)
[2021-07-16] MEDS ORDERED: Levofloxacin 750mg IV 750 MG/150 ML BAG IV SCH (21:05)
[2021-07-16] MEDS ORDERED: ONDANSETRON 4 MG/2 ML VIAL IV PRN (21:05)
[2021-07-16] MEDS ORDERED: D5 0.9 NS 1,000 ML IV ONE (21:44)
[2021-07-16 22:08] LABS: Urine Appearance Clear (Clear); Urine Blood Negative (Negative); Urine Color Yellow (Yellow); Urine Glucose 3+ (Negative); Urine Protein Negative (Negative); Urine Specific Gravity 1.025 (1.005-1.030); Urine Urobilinogen 0.2 mg/dL (0.2-1.0)
[2021-07-16 22:16] LABS: Urine Bilirubin NEGATIVE (Negative); Urine Microscopic Reflex NO UMIC
[2021-07-16 22:55] LABS: Blood Gas Oxyhemoglobin 91.7 % (94-97); Blood O2 Saturation 92.2 % (92-98.5)
[2021-07-17 00:48] VITALS: BMI 53.1
[2021-07-17] MEDS: NACHLORIDE 0.45% 1,000 ML IV SCH ×5 (01:05→17:05)
[2021-07-17 02:28] LABS: Absolute Lymphocytes (CBC) 1.5 K/uL (0.7-4.9); Basophils % 0.3 % (0-1.3); Hematocrit 29.2 % (36.0-45.0); Lymphocytes % 13.5 % (15.3-44.8); MPV 8.5 fL (7.6-11.3); RBC Red Blood Cell Count 4.26 M/uL (3.86-4.86)
[2021-07-17 02:33] LABS: BUN Blood Urea Nitrogen 33 mg/dL (7-18); Bicarbonate 23 mmol/L (21-32); Glucose Level 181 mg/dL (74-106); HDL Cholesterol 58 mg/dL (40-60); LDL Cholesterol, Calculated 32 (<130); Magnesium 2.1 mg/dL (1.8-2.4); Potassium 4.2 mmol/L (3.5-5.1); Sodium Level 143 mmol/L (136-145)
[2021-07-17] MEDS ORDERED: D50W 25 GM/50 ML SYRINGE IV PRN ×3 (02:58→23:32)
[2021-07-17] MEDS ORDERED: GLUCAGON 1 MG/VIAL IM PRN ×3 (02:58→23:32)
[2021-07-17] MEDS ORDERED: INSULIN -REGULAR HUMAN 50 UNIT/0.5 ML ML IV SCH (03:00)
[2021-07-17] MEDS: D5 0.45 NS 1,000 ML IV SCH ×4 (03:45→17:05)
[2021-07-17] MEDS ORDERED: D5 0.45 NS 1,000 ML IV ONE ×3 (03:49→12:14)
[2021-07-17] MEDS ORDERED: NACHLORIDE 0.45% 1,000 ML IV ONE ×3 (04:26→12:14)
[2021-07-17] MEDS ORDERED: ENOXAPARIN 40 MG/0.4 ML SQ SCH (09:00)
[2021-07-17] MEDS ORDERED: ENOXAPARIN 40 MG/0.4 ML SQ ONE (10:40)
[2021-07-17] MEDS: MORPHINE 2 MG/ML SYR IV PRN ×2 (11:16→17:21)
--- NOTE | 2021-07-17 12:49 | P.PN ---
Subjective Date of Service: 07/17/21 Doing well no issues over night but she cont to have abd pain around hernia and she would like pain meds there Physical Examination - Vital Signs Temperature: 97.9 F Blood Pressure: 143/63 Pulse: 72 Respirations: 16 Pulse Ox (%): 95 - Studies Laboratory Data (last 24 hrs) 07/16/21 11:25: WBC 12.40 H, Hgb 10.2 L, Hct 35.5 L, Plt Count 401 Assessment & Plan Physician Review Additional Text: Physical Examination: General: She is alert and oriented x3. She does not look in any distress. HEENT: Atraumatic, normocephalic. PERRLA. Oral mucosa is moist. Neck: Supple. No JVD. No carotid bruit. Chest: Clear to auscultation. Good air entry. Heart: Regular rate and rhythm. S1 and S2 normal. No gallop or murmur. Tachy. Abdomen: Soft, nontender. No masses. No hepatosplenomegaly. incarcerated umbilical hernia note. There are active bowel sounds. Extremities: No clubbing or cyanosis. A +1 edema. No calf tenderness. Neurologic: Grossly intact. Assessment and Plan This is a 66-year-old female with history of multiple medical problems, presented with abdominal pain and constipation, found to have incarcerated hernia with high glucose admitted for DKA. 1.Diabetic ketoacidosis. -resolved, pt on ISS, will resume her home meds, cont ABX empirically with Levaquin, 2.Incarcerated hernia with SBO NPO, on IV ABX , no leukocytosis culture so far pending neg, surgery seen pt, charge nurse trying to transfer pt to [place] due to insurance issues 3.Hypertension. well controlled,cont home meds 5.Deep vein thrombosis prophylaxis, on Lovenox. 6.Vicodin for back pain.
[2021-07-17] MEDS ORDERED: MORPHINE 2 MG/ML SYR ONE (16:58)
[2021-07-17 17:41] LABS: BUN Blood Urea Nitrogen 15 mg/dL (7-18); Bicarbonate 23 mmol/L (21-32); Glucose Level 201 mg/dL (74-106); Potassium 3.4 mmol/L (3.5-5.1); Sodium Level 141 mmol/L (136-145)
[2021-07-17] MEDS ORDERED: NA CHLORIDE 0.9% 1,000 ML IV SCH (18:00)
[2021-07-17] MEDS ORDERED: NA CHLORIDE 0.9% 1,000 ML ONE (18:12)
[2021-07-17] MEDS ORDERED: INSULIN -REGULAR HUMAN 50 UNIT/0.5 ML ML SQ SCH (21:00)
[2021-07-17] MEDS ORDERED: INSULIN GLARGINE 100 UNIT/ML SQ SCH (21:00)
[2021-07-17] MEDS ORDERED: HYDRALAZINE HCL 20 MG/ML VIAL IV PRN (23:34)
[2021-07-18] MEDS ORDERED: LEVOTHYROXINE SOD 0.1 MG TAB PO SCH (06:30)
[2021-07-18] MEDS ORDERED: LEVOTHYROXINE SOD 0.05 MG TABLET PO SCH (06:30)
[2021-07-18] MEDS ORDERED: glipiZIDE 5 MG TAB PO SCH (08:00)
[2021-07-18] MEDS ORDERED: LOSARTAN POTASSIUM 50 MG TABLET ONE (08:07)
[2021-07-18] MEDS ORDERED: AMLODIPINE 5 MG TAB ONE (08:07)
[2021-07-18] MEDS: INSULIN -REGULAR HUMAN 50 UNIT/0.5 ML ML SQ SCH ×4 (08:30→20:14)
[2021-07-18] MEDS ORDERED: INSULIN -REGULAR HUMAN 50 UNIT/0.5 ML ML ONE ×2 (08:42→12:38)
[2021-07-18] MEDS: LOSARTAN POTASSIUM 50 MG TABLET PO SCH (08:50)
[2021-07-18] MEDS ORDERED: HOME MED 1 EA UNK (Losartan Potassium [Losartan Potassium] 100 MG Tablet) PO SCH (09:00)
[2021-07-18] MEDS ORDERED: LOSARTAN POTASSIUM 50 MG TABLET PO SCH (09:00)
[2021-07-18] MEDS ORDERED: HOME MED 1 EA UNK (Levothyroxine Sodium [Levothyroxine] 50 MCG Capsule) PO SCH (09:00)
[2021-07-18] MEDS ORDERED: HOME MED 1 EA UNK (Levothyroxine Sodium [Levothyroxine] 200 MCG Capsule) PO SCH (09:00)
[2021-07-18] MEDS ORDERED: AMLODIPINE 5 MG TAB PO SCH ×2 (09:00)
[2021-07-18] MEDS ORDERED: MORPHINE 2 MG/ML SYR IV PRN (10:44)
[2021-07-18] MEDS ORDERED: KCL 20 MEQ/100 mL IVPB 20 MEQ/100 ML BAG IV ONE (11:00)
[2021-07-18] MEDS ORDERED: KCL 20 MEQ/100 mL IVPB 20 MEQ/100 ML BAG IV SCH (11:00)
[2021-07-18] MEDS ORDERED: POTASSIUM CL 40 MEQ in NA CHLORIDE 0.9% 500 ML IV SCH (11:00)
--- NOTE | 2021-07-18 11:43 | P.PN ---
Subjective Date of Service: 07/18/21 Doing well no issues over night but she cont to have abd pain around hernia and she would like pain meds she is concerned about her home meds,two hospital denied her transfer Physical Examination - Vital Signs Temperature: 97.9 F Blood Pressure: 158/72 Pulse: 72 Respirations: 13 Pulse Ox (%): 100 Assessment & Plan Physician Review Additional Text: Physical Examination: General: She is alert and oriented x3. She does not look in any distress. HEENT: Atraumatic, normocephalic. PERRLA. Oral mucosa is moist. Neck: Supple. No JVD. No carotid bruit. Chest: Clear to auscultation. Good air entry. Heart: Regular rate and rhythm. S1 and S2 normal. No gallop or murmur. Tachy. Abdomen: Soft, nontender. No masses. No hepatosplenomegaly. incarcerated umbilical hernia note. There are active bowel sounds. Extremities: No clubbing or cyanosis. A +1 edema. No calf tenderness. Neurologic: Grossly intact. Assessment and Plan This is a 66-year-old female with history of multiple medical problems, presented with abdominal pain and constipation, found to have incarcerated hernia with high glucose admitted for DKA. 1.Diabetic ketoacidosis. -resolved, pt on ISS and lantus 20 unit bid , cont ABX empirically with Levaquin, 2.Incarcerated hernia with SBO NPO, on IV ABX , no leukocytosis culture so far pending neg, surgery seen pt on admission and we were trying to transfer to [facility] due to insurance restriction but pt was denied by 2 hospital, will consult Dr Parra again for surgery now 3.Hypertension. Not well controlled,cont increase novasc to 10 mg and cont prn hydralazine 4-Hypothyroidism -Cont synthyroid 5.Deep vein thrombosis prophylaxis, on Lovenox. 6.Vicodin for back pain.
[2021-07-18] MEDS: KCL 20 MEQ/100 mL IVPB 20 MEQ/100 ML BAG IV SCH ×2 (12:00→13:21)
[2021-07-18 12:35] LABS: Absolute Lymphocytes (CBC) 0.9 K/uL (0.7-4.9); Basophils % 0.6 % (0-1.3); Hematocrit 35.5 % (36.0-45.0); Lymphocytes % 11.8 % (15.3-44.8); MPV 7.3 fL (7.6-11.3); RBC Red Blood Cell Count 5.02 M/uL (3.86-4.86)
[2021-07-18] MEDS ORDERED: MORPHINE 2 MG/ML SYR ONE (12:39)
[2021-07-18 12:49] LABS: ALT/SGPT 51 U/L (12-78); AST/SGOT 22 U/L (15-37); Albumin 2.6 g/dL (3.4-5.0); Alkaline Phosphatase 459 U/L (45-117); BUN Blood Urea Nitrogen 13 mg/dL (7-18); Bicarbonate 18 mmol/L (21-32); Bilirubin Total 0.5 mg/dL (0.2-1.0); Glucose Level 335 mg/dL (74-106); Protein, Total 6.3 g/dL (6.4-8.2); Sodium Level 142 mmol/L (136-145)
[2021-07-18] MEDS ORDERED: NA CHLORIDE 0.9% 1,000 ML ONE ×2 (14:25→15:54)
[2021-07-18] MEDS ORDERED: FENTANYL CITR 100 MCG/2 ML ONE (14:31)
[2021-07-18] MEDS ORDERED: propofoL 200 MG/20 ML VIAL IV ONE (14:31)
[2021-07-18] MEDS ORDERED: BUPIVACAINE 0.5% PF 10 ML VIAL ONE (14:32)
[2021-07-18] MEDS ORDERED: NEOSTIGMINE 1 MG/ML -5 ML ONE (14:32)
[2021-07-18] MEDS ORDERED: LIDOCAINE 1% MPF 5 ML VIAL ONE (14:32)
[2021-07-18] MEDS ORDERED: MIDAZOLAM HCL 2 MG/2 ML INJ ONE (14:32)
[2021-07-18] MEDS ORDERED: dexAMETHasone 4 MG/ML VIAL ONE (14:32)
[2021-07-18] MEDS ORDERED: GLYCOPYRROLATE 0.2 MG/ML SYR ONE (14:32)
[2021-07-18] MEDS ORDERED: MORPHINE 10 MG/ML VIAL ONE (14:33)
[2021-07-18] MEDS ORDERED: KETOROLAC 30 MG/ML INJ ONE (14:33)
[2021-07-18] MEDS ORDERED: ONDANSETRON 4 MG/2 ML VIAL ONE (14:33)
[2021-07-18] MEDS ORDERED: ROCURONIUM 50 MG/5 ML VIAL IV ONE ×2 (14:34→15:27)
[2021-07-18] MEDS ORDERED: METRONIDAZOLE 500mg IVPB 500 MG/100 ML BAG IV ONE (14:42)
[2021-07-18] MEDS ORDERED: CEFOXITIN/NS 1gm 1 GM/50 ML BAG ONE (14:42)
[2021-07-18] MEDS ORDERED: VECURONIUM 10 MG/VIAL IV ONE (15:25)
--- NOTE | 2021-07-18 16:22 | P.OP ---
Supervisor [employer]: Haris HARRIS Preoperative diagnosis: Incarcsrated Umbilical Hernia Postoperative diagnosis: same Primary procedure: Laparoscopic Assisted Repair of Incarcerated Umbilical Hernia Anesthesia: General Estimated blood loss: min Specimen: Hernia sac Findings: as above Complications: None Transferred to: Recovery Room Condition: Good
[2021-07-18] MEDS ORDERED: HYDROMORPHONE HCL 1 MG/ML INJ IV PRN (16:33)
[2021-07-18] MEDS: HYDROMORPHONE HCL 1 MG/ML INJ ONE ×2 (16:37→16:43)
--- NOTE | 2021-07-18 16:48 | PN ---
Date of Progress Note: 07/18/2021 Subjective: The patient is awake alert. Her diabetic ketoacidosis was corrected. Dr. Miguel osman med the nurse that she was cleared for surgery, therefore options were given to the patient with ____ stated that she wanted to do; however, she has decided to stay here and get her hernia fixed. She was complaining of some nausea, but no vomiting. Objective: Vital Signs: Her vitals are stable and she is afebrile. Abdomen: Soft. There is still incarcerated periumbilical mass consistent with incarcerated hernia w ith transverse colon in it. Laboratory Data: Shows a white count of 8000. There is still left shift. Her glucose is down to 309 . Her CO2 is 18, which is improved and anion gap has also improved. Assessment: Incarcerated ventral hernia/periumbilical hernia. Plan: We will proceed with laparoscopic repair of incarcerated ventral hernia. The patient and husb and understand the risks, benefits, and alternatives and agree to the procedure. /MODL Voice ID: [id number] Report ID: [id number]
--- NOTE | 2021-07-18 16:54 | OP ---
Date of Procedure: 07/18/2021 Surgeon: Jason Parra MD Telecommunications Technician: Haris Marin, bilingual sales assistant certified. Preoperative Diagnosis: Incarcerated umbilical hernia. Postoperative Diagnosis: Incarcerated umbilical hernia. Procedure: Laparoscopic assisted repair of incarcerated umbilical hernia. Estimated Blood Loss: Minimal. Specimen: Hernia sac. Finding: Incarcerated transverse colon. Anesthesia: General. Complications: None. Disposition: The patient tolerated the procedure in stable condition and taken to Recovery in good g eneral condition. Procedure In Detail: The patient was brought to the OR and placed in supine position. General anest hesia begun. The patient was prepped and draped in usual sterile fashion. Marcaine 0.5% was infiltr ated locally. A 15-blade was used to make a 2 cm incision in left upper quadrant. Subcutaneous tiss ue divided. Fascia identified and divided. A #1 Vicryl stay suture was placed. Peritoneal cavity e ntered with sharp and blunt dissection. A 12 mm trocar was placed into the peritoneal cavity under d irect vision. Pneumoperitoneum was established and then laparoscopy revealed incarcerated transverse colon. It was tightly adherent and it was very difficult to manipulate because of the tenseness of it. At this point, I decided to go ahead reduce the hernia that way and excise the hernia sac. So, a vertical incision approximately 12 cm from above and below the umbilicus made. Subcutan eous tissue divided. Hernia sac identified, freed from the surrounding tissue with sharp and blunt d issection. Hernia sac was opened and then the omentum and transverse colon carefully reduced back in to the peritoneal cavity. The transverse colon was a little dusky, but upon release, it appeared carlton y healthy. No evidence of necrosis or ischemia appreciated and good color returned the pe ritoneal cavity and then hernia sac excised all along the fascial edges and sent to Pathology. Then, a #2 nylon used to reapproximate the fascia in running fashion and then subcutaneous wound irrigated . Bleeding controlled with cautery. A 3-0 chromic used to reattach the umbilicus to the fascia and 3-0 chromic also used to reapproximate deep subcutaneous tissues spaces and meaghan used to close the skin. The laparoscopy was performed before the skin closure and revealed healthy transverse colon. No evidence of bleeding or bowel injury appreciated. Subsequently, the trocar was removed and then stay sutures were tied to each other across the fascial defect. Subcutaneous wounds irrigated. Blee ding controlled with cautery. A 3-0 chromic used for subcutaneous tissue and meaghan used to close t he skin. Sterile dressing applied. The patient was awakened and taken to Recovery in good general c ondition. /MODL Voice ID: [id number] Report ID: [id number]
[2021-07-18] MEDS ORDERED: CEFOXITIN SODIUM 1 GM/VIAL IVPB SCH ×2 (18:00→21:00)
[2021-07-18] MEDS: ONDANSETRON 4 MG/2 ML VIAL IV PRN (18:23)
[2021-07-18] MEDS: NA CHLORIDE 0.9% 1,000 ML IV SCH (18:23)
[2021-07-18] MEDS: CEFOXITIN 1 GM in NA CHLORIDE 0.9% 50 ML IV SCH (21:33)
[2021-07-19] MEDS: NA CHLORIDE 0.9% 1,000 ML IV SCH (00:59)
[2021-07-19] MEDS ORDERED: METRONIDAZOLE 500mg IVPB 500 MG/100 ML BAG IV SCH (01:00)
[2021-07-19] MEDS: CEFOXITIN 1 GM in NA CHLORIDE 0.9% 50 ML IV SCH ×4 (02:58→22:40)
[2021-07-19] MEDS: HYDROCODONE/APAP 7.5/325 MG TAB PO PRN ×2 (04:15→22:40)
[2021-07-19 05:56] LABS: Albumin 2.3 g/dL (3.4-5.0); Bilirubin Total 0.5 mg/dL (0.2-1.0); Potassium 4.9 mmol/L (3.5-5.1); Protein, Total 5.8 g/dL (6.4-8.2)
[2021-07-19 06:00] LABS: Absolute Lymphocytes (CBC) 0.4 K/uL (0.7-4.9); Basophils % 0.1 % (0-1.3); Hematocrit 33.1 % (36.0-45.0); Lymphocytes % 3.1 % (15.3-44.8); MPV 8.4 fL (7.6-11.3); RBC Red Blood Cell Count 4.61 M/uL (3.86-4.86)
[2021-07-19] MEDS ORDERED: D5W 1,000 ML with NA BICARB 8.4% 100 MEQ IV SCH ×2 (07:00)
[2021-07-19] MEDS: INSULIN -REGULAR HUMAN 50 UNIT/0.5 ML ML SQ SCH ×3 (07:30→12:42)
[2021-07-19 07:51] LABS: Anisocytosis 2+; Blood Morphology Comment NOT SEEN (NOT SEEN); Hypochromasia 1+; Platelet Estimate ADEQ; Poikilocytosis SLIGHT
[2021-07-19] MEDS ORDERED: INSULIN GLARGINE 100 UNIT/ML SQ ONE (07:51)
[2021-07-19] MEDS: LOSARTAN POTASSIUM 50 MG TABLET PO SCH (09:00)
[2021-07-19] MEDS: AMLODIPINE 10 MG TAB PO SCH (09:10)
[2021-07-19] MEDS: LEVOTHYROXINE SOD 0.025 MG TAB PO SCH (09:10)
--- NOTE | 2021-07-19 09:17 | PN ---
Date of Progress Note: 07/19/2021 Subjective: The patient is awake, alert, complaining of minimal pain. Tolerating full liquid diet. However, she has not gotten out of bed and ambulated, and she requires a walker at home. Laboratory Data: Reviewed. Objective: Abdomen: Soft, nondistended, nontender. Dressing is clean, dry, and intact. Assessment: Status post repair of incarcerated ventral/umbilical hernia. Recommendations: Continue IV antibiotics. PT consult for ambulation and advance diet as tolerated. Incentive spirometry. Hopefully, discharge in 24-48 hours. /MODL Voice ID: [id number] Report ID: [id number]
[2021-07-19 14:06] LABS: BUN Blood Urea Nitrogen 30 mg/dL (7-18); Glucose Level 488 mg/dL (74-106); Potassium 4.7 mmol/L (3.5-5.1); Sodium Level 139 mmol/L (136-145)
[2021-07-19 14:14] LABS: Bicarbonate 13 mmol/L (21-32)
[2021-07-19] MEDS ORDERED: INSULIN -REGULAR HUMAN 100 UNIT in NA CHLORIDE 0.9% 100 ML IV SCH (17:00)
[2021-07-19] MEDS ORDERED: D5 0.45 NS 1,000 ML IV SCH (17:00)
[2021-07-19] MEDS ORDERED: D5 0.45 NS 1,000 ML IV ONE (17:05)
--- NOTE | 2021-07-19 18:06 | P.PN ---
Subjective Date of Service: 07/19/21 Patient was in diabetic ketoacidosis; no shortness of breath; patient is clinically doing well. Patient denies any new complaints. Review of Systems 10-point ROS is otherwise unremarkable Physical Examination - Vital Signs Temperature: 98.1 F Blood Pressure: 101/53 Pulse: 89 Respirations: 17 Pulse Ox (%): 98 - Physical Exam General: Alert, In no apparent distress HEENT: Atraumatic, PERRLA, EOMI Neck: Supple, JVD not distended Respiratory: Clear to auscultation bilaterally, Normal air movement Cardiovascular: Regular rate/rhythm, Normal S1 S2 Gastrointestinal: Normal bowel sounds, No tenderness Musculoskeletal: No tenderness Integumentary: No rashes Neurological: Normal speech, Normal tone, Normal affect Lymphatics: No axilla or inguinal lymphadenopathy - Studies Medications List Reviewed: Yes Assessment & Plan - Problems (Diagnosis) (1) DKA (diabetic ketoacidosis) Current Visit: Yes Status: Acute (2) Hernia with strangulation Current Visit: Yes Status: Acute - Plan Continue with plan of care as mentioned below: 1. Continue with IV hydration 2. Continue with Insulin drip 3. Accu-Cheks q1h 4. Measure anion gap every 6 hrs 5. full liquid diet per surgery 6. Diabetic education 7. Monitor labs closely Discharge Plan: Home Plan to discharge in: Greater than 2 days - Advance Directives Does patient have a Living Will: No Does patient have a Durable POA for Healthcare: No - Code Status/Comfort Care Code Status Assessed: Yes Code Status: Full Code Critical Care: No Time Spent Managing PTS Care (In Minutes): 35
[2021-07-19] MEDS ORDERED: CEFOXITIN SODIUM 1 GM/VIAL ONE ×2 (18:39→22:36)
[2021-07-19] MEDS ORDERED: NA CHLORIDE 0.9% 50 ML ONE (18:40)
[2021-07-19 20:29] LABS: Potassium 3.9 mmol/L (3.5-5.1)
[2021-07-19] MEDS ORDERED: HYDROCODONE/APAP 7.5/325 MG TAB ONE (22:27)
[2021-07-19] MEDS ORDERED: NA CHLORIDE 0.9% 100 ML ONE (22:36)
[2021-07-20 02:46] LABS: Potassium 3.6 mmol/L (3.5-5.1)
[2021-07-20] MEDS ORDERED: NA CHLORIDE 0.9% 0 ML ONE ×2 (03:33→04:21)
[2021-07-20] MEDS ORDERED: CEFOXITIN SODIUM 1 GM/VIAL ONE ×3 (03:33→16:10)
[2021-07-20] MEDS: CEFOXITIN 1 GM in NA CHLORIDE 0.9% 50 ML IV SCH ×4 (04:18→20:26)
[2021-07-20] MEDS ORDERED: INSULIN GLARGINE 100 UNIT/ML SQ ONE ×2 (04:21→08:58)
[2021-07-20] MEDS ORDERED: NACHLORIDE 0.45% 1,000 ML IV ONE (04:24)
[2021-07-20] MEDS: NACHLORIDE 0.45% 1,000 ML IV SCH ×3 (04:26→21:06)
[2021-07-20] MEDS: INSULIN GLARGINE 100 UNIT/ML SQ SCH ×3 (04:28→20:28)
[2021-07-20] MEDS ORDERED: ONDANSETRON 4 MG/2 ML VIAL ONE (04:29)
[2021-07-20] MEDS: ONDANSETRON 4 MG/2 ML VIAL IV PRN (04:31)
[2021-07-20] MEDS ORDERED: POTASSIUM 25 MEQ EFFERV TAB PO ONE (05:24)
[2021-07-20] MEDS ORDERED: POTASSIUM 25 MEQ EFFERV TAB ONE (06:14)
[2021-07-20] MEDS ORDERED: LEVOTHYROXINE SOD 0.025 MG TAB ONE (06:25)
[2021-07-20 06:30] LABS: Absolute Lymphocytes (CBC) 1.6 K/uL (0.7-4.9); Basophils % 0.6 % (0-1.3); Hematocrit 27.6 % (36.0-45.0); Lymphocytes % 23.6 % (15.3-44.8); MPV 8.1 fL (7.6-11.3); RBC Red Blood Cell Count 3.99 M/uL (3.86-4.86)
[2021-07-20] MEDS: LEVOTHYROXINE SOD 0.025 MG TAB PO SCH (06:30)
[2021-07-20 06:45] LABS: Bilirubin Total 0.5 mg/dL (0.2-1.0); Magnesium 2.1 mg/dL (1.8-2.4); Potassium 3.7 mmol/L (3.5-5.1); Protein, Total 5.1 g/dL (6.4-8.2)
[2021-07-20] MEDS: INSULIN -REGULAR HUMAN 50 UNIT/0.5 ML ML SQ SCH ×4 (07:30→20:27)
[2021-07-20] MEDS ORDERED: NA CHLORIDE 0.9% 100 ML ONE ×2 (08:56→16:10)
[2021-07-20] MEDS ORDERED: AMLODIPINE 10 MG TAB ONE (08:56)
[2021-07-20] MEDS ORDERED: LOSARTAN POTASSIUM 50 MG TABLET ONE (08:56)
[2021-07-20] MEDS: LOSARTAN POTASSIUM 50 MG TABLET PO SCH ×3 (09:00→21:05)
[2021-07-20] MEDS: AMLODIPINE 10 MG TAB PO SCH (09:09)
[2021-07-20 09:18] LABS: BUN Blood Urea Nitrogen 25 mg/dL (7-18); Bicarbonate 25 mmol/L (21-32); Glucose Level 124 mg/dL (74-106); Potassium 3.9 mmol/L (3.5-5.1); Sodium Level 140 mmol/L (136-145)
[2021-07-20] MEDS ORDERED: HYDROCODONE/APAP 7.5/325 MG TAB ONE (09:41)
[2021-07-20] MEDS: HYDROCODONE/APAP 7.5/325 MG TAB PO PRN (09:42)
--- NOTE | 2021-07-20 11:57 | PN ---
Date of Progress Note: 07/20/2021 Subjective: The patient is awake, alert. No complaints. Vitals stable, afebrile. The patient is p assing gas. No bowel movement. Laboratory Data: Reviewed. Anion gap has been corrected. Glucose is 100-150 and controlled. Objective: Abdomen: Benign. Assessment: Status post repair of incarcerated umbilical and ventral hernia. Recommendations: The patient is going to be transferred to the floor. Monitor for 24 hours for her glucose and if stable, will be discharged home tomorrow. Plan of care was discussed with Dr. Worley. /MODGuido Voice ID: [id number] Report ID: [id number]
[2021-07-20] MEDS ORDERED: INSULIN -REGULAR HUMAN 50 UNIT/0.5 ML ML ONE (12:48)
[2021-07-20] MEDS ORDERED: NA CHLORIDE 0.9% 50 ML ONE (16:13)
[2021-07-21] MEDS: FAMOTIDINE 20 MG/2 ML VIAL IV PRN ×2 (00:03→21:29)
[2021-07-21] MEDS: CEFOXITIN 1 GM in NA CHLORIDE 0.9% 50 ML IV SCH ×3 (02:11→15:29)
[2021-07-21] MEDS: LEVOTHYROXINE SOD 0.025 MG TAB PO SCH (05:46)
[2021-07-21] MEDS: INSULIN -REGULAR HUMAN 50 UNIT/0.5 ML ML SQ SCH ×4 (07:30→21:28)
[2021-07-21] MEDS: AMLODIPINE 10 MG TAB PO SCH (09:27)
[2021-07-21] MEDS: INSULIN GLARGINE 100 UNIT/ML SQ SCH ×2 (09:27→21:28)
[2021-07-21] MEDS: HYDROCODONE/APAP 7.5/325 MG TAB PO PRN ×2 (09:46→22:53)
--- NOTE | 2021-07-21 10:04 | P.PN ---
Date of Service: 07/20/21 Subjective Patient's DKA is corrected. Patient will transfer to the floor. However, patient is really weak, and not ambulating that well with physical therapy. Patient will probably need to get transfer to a correction facility for continue strengthening Review of Systems 10-point ROS is otherwise unremarkable Physical Examination - Vital Signs Reviewed - Physical Exam General: Alert, In no apparent distress Respiratory: Clear to auscultation bilaterally, Normal air movement Cardiovascular: Regular rate/rhythm, Normal S1 S2 Gastrointestinal: Normal bowel sounds, No tenderness; wound is healing appropriately Neurological: Normal speech, Normal tone, Normal affect Extremities: No clubbing/no cyanosis/no edema Assessment & Plan - Problems (Diagnosis) (1) DKA (diabetic ketoacidosis) Current Visit: Yes Status: Acute (2) Hernia with strangulation Current Visit: Yes Status: Acute - Plan Continue with plan of care as mentioned below: 1. Continue with gentle hydration 2. Long-acting insulin 3. Accu-Cheks q.a.c. and q.h.s. 4. Monitor labs daily 5. Advanced diet as tolerated 6. Diabetic education 7. Monitor labs closely - Advance Directives Does patient have a Living Will: No Does patient have a Durable POA for Healthcare: No
--- NOTE | 2021-07-21 10:06 | P.PN ---
Date of Service: 07/21/21 Subjective Patient with no new complaints. Clinically patient doing well. Still weak and working with therapy. Working on shelter facility placement Review of Systems 10-point ROS is otherwise unremarkable Physical Examination - Vital Signs Reviewed - Physical Exam General: Alert, In no apparent distress Respiratory: Clear to auscultation bilaterally, Normal air movement Cardiovascular: Regular rate/rhythm, Normal S1 S2 Gastrointestinal: Normal bowel sounds, No tenderness; wound is healing siri ropriately Neurological: Normal speech, Normal tone, Normal affect Extremities: No clubbing/no cyanosis/no edema Assessment & Plan - Problems (Diagnosis) (1) DKA (diabetic ketoacidosis) Current Visit: Yes Status: Acute (2) Hernia with strangulation Current Visit: Yes Status: Acute - Plan Continue with plan of care as mentioned below: 1. Continue with gentle hydration 2. Long-acting insulin 3. Accu-Cheks q.a.c. and q.h.s. 4. Monitor labs daily 5. Advanced diet as tolerated 6. Diabetic education 7. Monitor labs closely - Advance Directives Does patient have a Living Will: No Does patient have a Durable POA for Healthcare: No
--- NOTE | 2021-07-21 11:23 | PN ---
Date of Progress Note: 07/21/2021 Subjective: The patient is awake, alert, no complaint; however, she feels that she is too weak to go home. She uses a walker at home. She is not strong enough right now to take care of herself and lise is requesting physical therapy and rehab evaluation. Objective: VITAL SIGNS: Stable. Afebrile. ABDOMEN: Her abdomen is benign. Laboratory Data: Reviewed. Her diabetic ketoacidosis anion gap is completely corrected. Her sugars are in the 100s now. Assessment: Status post repair of an incarcerated ventral hernia. Recommendations: The patient is cleared from surgery for discharge planning. Per the social service the patient may require rehab either in our facility or at home or at a senior care. Social servic e will work with and try to evaluate those situations and see which one is best for the patient. Jose Eduardo n of care discussed with the head nurse as well as Dr. Worley. [facility]. /MODL Voice ID: [id number] Report ID: [id number]
[2021-07-21] MEDS: NACHLORIDE 0.45% 1,000 ML IV SCH (15:28)
[2021-07-21] MEDS: LOSARTAN POTASSIUM 50 MG TABLET PO SCH (21:27)
[2021-07-22 03:50] LABS: Magnesium 1.9 mg/dL (1.8-2.4); Potassium 3.7 mmol/L (3.5-5.1)
[2021-07-22] MEDS: NACHLORIDE 0.45% 1,000 ML IV SCH ×3 (04:20→17:39)
[2021-07-22] MEDS ORDERED: KCL 20 MEQ/100 mL IVPB 20 MEQ/100 ML BAG IV SCH (05:00)
[2021-07-22] MEDS: LEVOTHYROXINE SOD 0.025 MG TAB PO SCH (06:39)
[2021-07-22] MEDS: INSULIN -REGULAR HUMAN 50 UNIT/0.5 ML ML SQ SCH ×4 (07:30→20:43)
[2021-07-22] MEDS: INSULIN GLARGINE 100 UNIT/ML SQ SCH ×2 (07:51→20:43)
[2021-07-22] MEDS: AMLODIPINE 10 MG TAB PO SCH (09:04)
[2021-07-22] MEDS: HYDROCODONE/APAP 7.5/325 MG TAB PO PRN ×2 (09:05→22:08)
--- NOTE | 2021-07-22 09:16 | P.PN ---
Date of Service: 07/22/21 Subjective Patient clinically doing better. Ambulated with physical therapy about 50 feet. Continues to strengthen. Wound care order per General surgery recommendation. Patient will [facility] need to go [facility] and then will proceed with inpatient rehab afterwards. Review of Systems 10-point ROS is otherwise unremarkable Physical Examination - Vital Signs Reviewed - Physical Exam General: Alert, In no apparent distress Respiratory: Clear to auscultation bilaterally, Normal air movement Cardiovascular: Regular rate/rhythm, Normal S1 S2 Gastrointestinal: Normal bowel sounds, No tenderness; wound is healing appropriately Neurological: Normal speech, Normal tone, Normal affect Extremities: No clubbing/no cyanosis/no edema Assessment & Plan - Problems (Diagnosis) (1) DKA (diabetic ketoacidosis) Current Visit: Yes Status: Acute (2) Hernia with strangulation Current Visit: Yes Status: Acute - Plan Continue with plan of care as mentioned below: 1. Continue with gentle hydration 2. Long-acting insulin 3. Accu-Cheks q.a.c. and q.h.s. 4. Monitor labs daily 5. Advanced diet as tolerated 6. Diabetic education 7. Monitor labs closely - Advance Directives Does patient have a Living Will: No Does patient have a Durable POA for Healthcare: No
--- NOTE | 2021-07-22 09:24 | PN ---
Date of Progress Note: 07/22/2021 Subjective: The patient is awake and is beginning to work a little bit more with physical therapy, t olerating diet, passing gas. Objective: Vital Signs: Stable. Afebrile. Abdomen: Benign. Dressing clean, dry, and intact. Assessment: Status post repair of incarcerated ventral hernia. Recommendations: The patient is cleared from a surgical point for discharge. Followup with me in 1 to 2 weeks in my office. No heavy lifting. Abdominal binder while ambulating and wound care as orde red. Discharge planning is in place right now. /MODL Voice ID: [id number] Report ID: [id number]
--- NOTE | 2021-07-22 14:00 | RAD REPORT ---
EXAM DESCRIPTION: RAD - Knee Left 2 View - 07/22/2021 1:18 pm CLINICAL HISTORY: pain/fall COMPARISON: <Comparisons> FINDINGS: No acute fracture. No malalignment. Enthesopathic spurrnig along the patella. Medial miguel rtment spurring. IMPRESSION: No acute osseous abnormality involving the left knee.
--- NOTE | 2021-07-22 14:08 | RAD REPORT ---
EXAM DESCRIPTION: RAD - Knee Right 2 View - 07/22/2021 1:18 pm CLINICAL HISTORY: pain/fall COMPARISON: No comparisons FINDINGS: No acute fracture. No malalignment. Mild medial and lateral compartment narrowing. IMPRESSION: No acute osseous abnormality involving the right knee.
[2021-07-22] MEDS: LOSARTAN POTASSIUM 50 MG TABLET PO SCH (20:42)
[2021-07-22] MEDS: FAMOTIDINE 20 MG/2 ML VIAL IV PRN (20:43)
[2021-07-23] MEDS: HYDROCODONE/APAP 7.5/325 MG TAB PO PRN ×3 (06:02→22:11)
[2021-07-23] MEDS: LEVOTHYROXINE SOD 0.025 MG TAB PO SCH (06:03)
[2021-07-23] MEDS: NACHLORIDE 0.45% 1,000 ML IV SCH (06:23)
[2021-07-23 06:44] LABS: BUN Blood Urea Nitrogen 3 mg/dL (7-18); Bicarbonate 30 mmol/L (21-32); Glucose Level 66 mg/dL (74-106); Potassium 4.1 mmol/L (3.5-5.1); Sodium Level 145 mmol/L (136-145)
[2021-07-23] MEDS: INSULIN -REGULAR HUMAN 50 UNIT/0.5 ML ML SQ SCH ×4 (07:30→20:22)
[2021-07-23] MEDS: INSULIN GLARGINE 100 UNIT/ML SQ SCH ×2 (09:00→20:22)
[2021-07-23] MEDS: AMLODIPINE 10 MG TAB PO SCH (09:08)
[2021-07-23] MEDS ORDERED: HYDROCORTISONE SUC 100 MG INJ IV ONE (12:37)
--- NOTE | 2021-07-23 17:17 | P.PN ---
Date of Service: 07/23/21 Subjective Improving. Knee X-rays negative; continue with PT and advance diet as tolerated Review of Systems 10-point ROS is otherwise unremarkable Physical Examination - Vital Signs Reviewed - Physical Exam General: Alert, In no apparent distress Respiratory: Clear to auscultation bilaterally, Normal air movement Cardiovascular: Regular rate/rhythm, Normal S1 S2 Gastrointestinal: Normal bowel sounds, No tenderness; wound is healing appropriately Neurological: Normal speech, Normal tone, Normal affect Extremities: No clubbing/no cyanosis/no edema Assessment & Plan - Problems (Diagnosis) (1) DKA (diabetic ketoacidosis) Current Visit: Yes Status: Acute (2) Hernia with strangulation s/p repair Current Visit: Yes Status: Acute (3) Knee pain Current Visit: Yes Status: Acute - Plan Continue with plan of care as mentioned below: 1. Heplock IV 2. Long-acting insulin 3. Accu-Cheks q.a.c. and q.h.s. 4. Monitor labs daily 5. Advanced diet as tolerated 6. Diabetic education 7. Monitor labs closely - Advance Directives Does patient have a Living Will: No Does patient have a Durable POA for Healthcare: No
[2021-07-23] MEDS: FAMOTIDINE 20 MG/2 ML VIAL IV PRN (20:21)
[2021-07-23] MEDS: LOSARTAN POTASSIUM 50 MG TABLET PO SCH (20:21)
[2021-07-24] MEDS: LEVOTHYROXINE SOD 0.025 MG TAB PO SCH (06:30)
[2021-07-24] MEDS: AMLODIPINE 10 MG TAB PO SCH (08:47)
[2021-07-24] MEDS: INSULIN GLARGINE 100 UNIT/ML SQ SCH ×2 (08:48→20:54)
[2021-07-24] MEDS: INSULIN -REGULAR HUMAN 50 UNIT/0.5 ML ML SQ SCH ×4 (08:48→20:54)
[2021-07-24] MEDS: HYDROCODONE/APAP 7.5/325 MG TAB PO PRN ×2 (09:18→22:22)
[2021-07-24] MEDS: FAMOTIDINE 20 MG TAB PO PRN (20:54)
[2021-07-24] MEDS: LOSARTAN POTASSIUM 50 MG TABLET PO SCH (20:54)
[2021-07-25] MEDS: LEVOTHYROXINE SOD 0.025 MG TAB PO SCH (06:00)
[2021-07-25] MEDS: INSULIN -REGULAR HUMAN 50 UNIT/0.5 ML ML SQ SCH ×4 (07:15→21:31)
[2021-07-25] MEDS: INSULIN GLARGINE 100 UNIT/ML SQ SCH ×2 (08:25→21:33)
[2021-07-25] MEDS: AMLODIPINE 10 MG TAB PO SCH (08:28)
--- NOTE | 2021-07-25 15:04 | P.PN ---
Date of Service: 07/24/21 Subjective Knee brace placed to assist patient with her ambulating. She says her knee gives out on her. Otherwise patient's blood sugars have been fairly stable. Review of Systems 10-point ROS is otherwise unremarkable Physical Examination - Vital Signs Reviewed - Physical Exam General: Alert, In no apparent distress Respiratory: Clear to auscultation bilaterally, Normal air movement Cardiovascular: Regular rate/rhythm, Normal S1 S2 Gastrointestinal: Normal bowel sounds, No tenderness; wound is healing appropriately Neurological: Normal speech, Normal tone, Normal affect Extremities: No clubbing/no cyanosis/no edema Assessment & Plan - Problems (Diagnosis) (1) DKA (diabetic ketoacidosis) Current Visit: Yes Status: Acute (2) Hernia with strangulation status post repair Current Visit: Yes Status: Acute (3) History of thyroid cancer Current Visit: Yes Status: Acute (4) Hypertension Current Visit: Yes Status: Acute (5) Bilateral knee pain Current Visit: Yes Status: Acute - Plan Continue with plan of care as mentioned below: 1. Hep-Lock IV 2. Continue Lantus 3. Accu-Cheks q.a.c. and q.h.s. 4. Monitor labs daily 5. Advanced diet as tolerated 6. Diabetic education 7. Continue with physical therapy 8. Awaiting shelter facility placement 9. GI and DVT prophylaxis
--- NOTE | 2021-07-25 15:06 | P.PN ---
Date of Service: 07/25/21 Subjective Patient was slightly hypoglycemic. Adjusted Lantus. Continue with physical therapy. Knee brace at bedside. Continue monitoring incision from hernia repair. Awaiting placement at a half-way facility Review of Systems 10-point ROS is otherwise unremarkable Physical Examination - Vital Signs Reviewed - Physical Exam General: Alert, In no apparent distress Respiratory: Clear to auscultation bilaterally, Normal air movement Cardiovascular: Regular rate/rhythm, Normal S1 S2 Gastrointestinal: Normal bowel sounds, No tenderness; wound is healing appropriately Neurological: Normal speech, Normal tone, Normal affect Extremities: No clubbing/no cyanosis/no edema Assessment & Plan - Problems (Diagnosis) (1) DKA (diabetic ketoacidosis) Current Visit: Yes Status: Acute (2) Hernia with strangulation status post repair Current Visit: Yes Status: Acute (3) History of thyroid cancer Current Visit: Yes Status: Acute (4) Hypertension Current Visit: Yes Status: Acute (5) Bilateral knee pain Current Visit: Yes Status: Acute - Plan Continue with plan of care as mentioned below: 1. Hep-Lock IV 2. Continue Lantus; decreased to 10 units q.h.s. 3. Accu-Cheks q.a.c. and q.h.s. 4. Monitor labs; check A1c level in the morning 5. Tolerating diet 6. Diabetic education 7. Continue with physical therapy 8. Awaiting half-way facility placement 9. GI and DVT prophylaxis
[2021-07-25 15:35] LABS: Absolute Lymphocytes (CBC) 1.8 K/uL (0.7-4.9); Hematocrit 36.1 % (36.0-45.0); Lymphocytes % 24.7 % (15.3-44.8); MPV 8.1 fL (7.6-11.3); RBC Red Blood Cell Count 5.13 M/uL (3.86-4.86)
[2021-07-25 16:05] LABS: Albumin 2.3 g/dL (3.4-5.0); Bilirubin Total 0.4 mg/dL (0.2-1.0); Potassium 4.8 mmol/L (3.5-5.1)
[2021-07-25] MEDS: HYDROCODONE/APAP 7.5/325 MG TAB PO PRN (18:02)
[2021-07-25] MEDS: LOSARTAN POTASSIUM 50 MG TABLET PO SCH (21:27)
[2021-07-25] MEDS: FAMOTIDINE 20 MG TAB PO PRN (21:35)
[2021-07-26] MEDS: LEVOTHYROXINE SOD 0.025 MG TAB PO SCH (05:30)
[2021-07-26 06:06] LABS: Absolute Lymphocytes (CBC) 1.7 K/uL (0.7-4.9); Basophils % 0.9 % (0-1.3); Hematocrit 30.1 % (36.0-45.0); Lymphocytes % 31.9 % (15.3-44.8); MPV 8.1 fL (7.6-11.3); RBC Red Blood Cell Count 4.35 M/uL (3.86-4.86)
[2021-07-26 06:16] LABS: ALT/SGPT 129 U/L (12-78); AST/SGOT 101 U/L (15-37); Albumin 1.9 g/dL (3.4-5.0); BUN Blood Urea Nitrogen 8 mg/dL (7-18); Bicarbonate 29 mmol/L (21-32); Bilirubin Total 0.4 mg/dL (0.2-1.0); Glucose Level 150 mg/dL (74-106); Potassium 4.4 mmol/L (3.5-5.1); Protein, Total 4.9 g/dL (6.4-8.2); Sodium Level 142 mmol/L (136-145)
[2021-07-26 06:29] LABS: Alkaline Phosphatase 1428 U/L (45-117)
[2021-07-26] MEDS: INSULIN -REGULAR HUMAN 50 UNIT/0.5 ML ML SQ SCH ×4 (07:30→20:43)
[2021-07-26] MEDS: HYDROCODONE/APAP 7.5/325 MG TAB PO PRN ×2 (07:55→20:44)
[2021-07-26] MEDS: AMLODIPINE 10 MG TAB PO SCH (07:55)
--- NOTE | 2021-07-26 16:24 | P.PN ---
Subjective Date of Service: 07/26/21 Primary Care Provider: REMINGTON Khan Subjective: Improving Physical Examination - Vital Signs Temperature: 98.7 F Blood Pressure: 114/72 Pulse: 97 Respirations: 18 Pulse Ox (%): 98 - Studies Medications List Reviewed: Yes Assessment & Plan Discharge Plan: Other (intermediate facility) Plan to discharge in: 48 Hours Physician Review Additional Text: COVID: Negative CT scan: COMPARISON: None TECHNIQUE: Computed axial tomography of the abdomen and pelvis was obtained. IV and oral contrast were not requested. All CT scans are performed using dose optimization technique as appropriate and may include automated exposure control or mA/KV adjustment according to patient size. FINDINGS: The evaluation of solid organs, vessels and bowel is limited secondary to the lack of contrast administration. Umbilical hernia contains transverse colon. The colon distal to the hernia is decompressed. The colon within the hernia and ascending colon is mildly dilated containing stool. The neck of the hernia measures 3.3 centimeters. The liver, spleen, pancreas, adrenals and kidneys appear grossly normal. There is no evidence of diverticulitis. Cholecystectomy IMPRESSION: Umbilical hernia resulting in an obstruction of the transverse colon Surgery: Date of Procedure: 07/18/2021 Surgeon: Jason Parra MD Crepe Sole Scourer: Haris Marin, radiology assistant certified. Preoperative Diagnosis: Incarcerated umbilical hernia. Postoperative Diagnosis: Incarcerated umbilical hernia. Procedure: Laparoscopic assisted repair of incarcerated umbilical hernia. Estimated Blood Loss: Minimal. Specimen: Hernia sac. Finding: Incarcerated transverse colon. Physical exam: General: Alert, In no apparent distress Respiratory: Clear to auscultation bilaterally, Normal air movement Cardiovascular: Regular rate/rhythm, Normal S1 S2 Gastrointestinal: Postoperative changes noted. Neurological: Normal speech, Normal tone, Normal affect Extremities: No clubbing/no cyanosis/no edema Impression: DKA resolved with history of diabetes mellitus type 1 Incarcerated umbilical hernia status post laparoscopic assisted repair of incarcerated umbilical hernia Hypertension Hypothyroidism Plan: Patient doing well postoperatively. Continue with Lantus. Will monitor and adjust medication. Accu-Cheks in place. Continue blood pressure medication including Norvasc and losartan. Continue levothyroxine Patient tolerating diet. Continue physical therapy and ambulation. Patient agrees to skilled placement. DVT prophylaxis: Lovenox CODE STATUS: Full code Advance care [id number] minutes: intermediate facility Time Spent Managing Pts Care (In Minutes): 55
[2021-07-26] MEDS: LOSARTAN POTASSIUM 50 MG TABLET PO SCH (20:44)
[2021-07-26] MEDS: INSULIN GLARGINE 100 UNIT/ML SQ SCH (20:44)
[2021-07-26] MEDS: FAMOTIDINE 20 MG TAB PO PRN (20:47)
[2021-07-27 04:36] LABS: Absolute Lymphocytes (CBC) 1.9 K/uL (0.7-4.9); Basophils % 1.1 % (0-1.3); Hematocrit 30.4 % (36.0-45.0); Lymphocytes % 35.1 % (15.3-44.8); MPV 8.1 fL (7.6-11.3); RBC Red Blood Cell Count 4.35 M/uL (3.86-4.86)
[2021-07-27 05:04] LABS: ALT/SGPT 96 U/L (12-78); AST/SGOT 36 U/L (15-37); Albumin 1.9 g/dL (3.4-5.0); Alkaline Phosphatase 1230 U/L (45-117); BUN Blood Urea Nitrogen 9 mg/dL (7-18); Bicarbonate 31 mmol/L (21-32); Bilirubin Total 0.3 mg/dL (0.2-1.0); Glucose Level 131 mg/dL (74-106); Magnesium 1.9 mg/dL (1.8-2.4); Potassium 4.3 mmol/L (3.5-5.1); Protein, Total 4.9 g/dL (6.4-8.2); Sodium Level 141 mmol/L (136-145)
[2021-07-27] MEDS: LEVOTHYROXINE SOD 0.025 MG TAB PO SCH (05:55)
[2021-07-27] MEDS: HYDROCODONE/APAP 7.5/325 MG TAB PO PRN ×3 (05:55→21:26)
--- NOTE | 2021-07-27 06:19 | P.PN ---
Subjective Date of Service: 07/27/21 Primary Care Provider: REMINGTON Khan Subjective: Improving (Patient trying patient tolerating diet. Her best to ambulate. Still reports some knee pain.) Physical Examination - Vital Signs Temperature: 97.5 F Blood Pressure: 127/68 Pulse: 64 Respirations: 19 Pulse Ox (%): 96 - Studies Medications List Reviewed: Yes Assessment & Plan Discharge Plan: Other (SNF) Plan to discharge in: 24 Hours Physician Review Additional Text: COVID: Negative CT scan: COMPARISON: None TECHNIQUE: Computed axial tomography of the abdomen and pelvis was obtained. IV and oral contrast were not requested. All CT scans are performed using dose optimization technique as appropriate and may include automated exposure control or mA/KV adjustment according to patient size. FINDINGS: The evaluation of solid organs, vessels and bowel is limited secondary to the lack of contrast administration. Umbilical hernia contains transverse colon. The colon distal to the hernia is decompressed. The colon within the hernia and ascending colon is mildly dilated containing stool. The neck of the hernia measures 3.3 centimeters. The liver, spleen, pancreas, adrenals and kidneys appear grossly normal. There is no evidence of diverticulitis. Cholecystectomy IMPRESSION: Umbilical hernia resulting in an obstruction of the transverse colon Surgery: Date of Procedure: 07/18/2021 Surgeon: Jason Parra MD Barrel Charrer Helper: Haris Marin, surgical aide certified. Preoperative Diagnosis: Incarcerated umbilical hernia. Postoperative Diagnosis: Incarcerated umbilical hernia. Procedure: Laparoscopic assisted repair of incarcerated umbilical hernia. Estimated Blood Loss: Minimal. Specimen: Hernia sac. Finding: Incarcerated transverse colon. Pathology: DIAGNOSIS Soft tissue, ventral hernia sac, herniorrhaphy: - Hernia sac Pre-op Diagnosis: Incarcerated ventral hernia. Post-op Diagnosis: Same. Right knee xray: COMPARISON: No comparisons FINDINGS: No acute fracture. No malalignment. Mild medial and lateral compartment narrowing. IMPRESSION: No acute osseous abnormality involving the right knee. Left knee ray: FINDINGS: No acute fracture. No malalignment. Enthesopathic spurrnig along the patella. Medial compartment spurring. IMPRESSION: No acute osseous abnormality involving the left knee. Physical exam: General: Alert, In no apparent distress Respiratory: Clear to auscultation bilaterally, Normal air movement Cardiovascular: Regular rate/rhythm, Normal S1 S2 Gastrointestinal: Postoperative changes noted. Neurological: Normal speech, Normal tone, Normal affect Extremities: No clubbing/no cyanosis/no edema Impression: DKA resolved with history of diabetes mellitus type 1 Incarcerated umbilical hernia status post laparoscopic assisted repair of incarcerated umbilical hernia Hypertension Hypothyroidism Elevated liver function related to above Chronic knee pain Plan: DKA resolved with history of diabetes mellitus type 1: Blood sugars now better controlled. Hemoglobin A1c 8.5. Continue Lantus 10 units subcu daily. We will continue to monitor and adjust. Accu-Cheks in place. Patient awaiting approval for skilled placement. Incarcerated umbilical hernia status post laparoscopic assisted repair of incarcerated umbilical hernia: Patient doing well postoperatively. Encourage incentive spirometer. Encourage physical therapy. DC Arias catheter once ambulating. Continue with medication for pain. Hypertension: Overall stable. Continue Norvasc 10 mg daily and losartan 100 mg daily. Hypothyroidism: Continue levothyroxine 25 mcg daily. Elevated liver function likely related to above: Liver function tests improved. Chronic knee pain: X-rays recently shows no evidence of fracture. Continue to work with physical therapy. Patient would benefit with outpatient orthopedic evaluation. This was addressed in detail with patient. DVT prophylaxis: Lovenox CODE STATUS: Full code Advance care [id number] minutes: Awaiting approval for skilled placement. Time Spent Managing Pts Care (In Minutes): 55
[2021-07-27] MEDS: INSULIN -REGULAR HUMAN 50 UNIT/0.5 ML ML SQ SCH ×4 (07:30→21:15)
[2021-07-27] MEDS: AMLODIPINE 10 MG TAB PO SCH (09:03)
[2021-07-27 10:07] VITALS: O2SAT 96
--- NOTE | 2021-07-27 16:05 | P.DS ---
Admission Date: 07/16/21 Discharge Date: 07/27/21 Primary Care Provider: REMINGTON Khan Disposition: TRANSFER TO SNF - MEDICAL Discharge Condition: GOOD Consultations: Surgery-Dr. Parra Procedures: COVID: Negative CT scan: COMPARISON: None TECHNIQUE: Computed axial tomography of the abdomen and pelvis was obtained. IV and oral contrast were not requested. All CT scans are performed using dose optimization technique as appropriate and may include automated exposure control or mA/KV adjustment according to patient size. FINDINGS: The evaluation of solid organs, vessels and bowel is limited secondary to the lack of contrast administration. Umbilical hernia contains transverse colon. The colon distal to the hernia is decompressed. The colon within the hernia and ascending colon is mildly dilated containing stool. The neck of the hernia measures 3.3 centimeters. The liver, spleen, pancreas, adrenals and kidneys appear grossly normal. There is no evidence of diverticulitis. Cholecystectomy IMPRESSION: Umbilical hernia resulting in an obstruction of the transverse colon Surgery: Date of Procedure: 07/18/2021 Surgeon: Jason Parra MD Kiln Loader: Haris Marin, cardiovascular surgical tech certified. Preoperative Diagnosis: Incarcerated umbilical hernia. Postoperative Diagnosis: Incarcerated umbilical hernia. Procedure: Laparoscopic assisted repair of incarcerated umbilical hernia. Estimated Blood Loss: Minimal. Specimen: Hernia sac. Finding: Incarcerated transverse colon. Pathology: DIAGNOSIS Soft tissue, ventral hernia sac, herniorrhaphy: - Hernia sac Pre-op Diagnosis: Incarcerated ventral hernia. Post-op Diagnosis: Same. Right knee xray: COMPARISON: No comparisons FINDINGS: No acute fracture. No malalignment. Mild medial and lateral compartment narrowing. IMPRESSION: No acute osseous abnormality involving the right knee. Left knee ray: FINDINGS: No acute fracture. No malalignment. Enthesopathic spurrnig along the patella. Medial compartment spurring. IMPRESSION: No acute osseous abnormality involving the left knee. Medical Problem List: DKA resolved with history of diabetes mellitus type 1 Incarcerated umbilical hernia status post laparoscopic assisted repair of i ncarcerated umbilical hernia Hypertension Hypothyroidism Elevated liver function related to above Chronic knee pain Brief History of Present Illness: 66-year-old female with history of multiple medical problems including diabetes, hypertension, hypothyroidism, and thyroid cancer, presented to the emergency room with new onset of severe constipation. Last bowel movement was two days ago associated with abdominal pain around her umbilical hernia, reported nausea and vomiting. She denies any bowel movement or gas. She reported history of periumbilical hernia, which she could reduce manually, but in the last 24 hours, she was not able to reduce it back. In the emergency room, she was evaluated and CT of the abdomen was done in the emergency room and it showed umbilical hernia resulting in obstruction of the transverse colon. Needed. Surgery was consulted to further evaluate. Patient found to have DKA. Hospital Course: Patient was admitted for severe constipation and abdominal pain. Patient found to have incarcerated umbilical hernia. She was also found to have DKA. Patient was admitted for treatment. Her DKA was treated. Patient was seen and evaluated by surgery. Surgery was recommended. Patient had laparoscopic assisted repair of incarcerated umbilical hernia. Patient has done well. DKA has resolved. Patient is currently tolerating diet. Patient was evaluated for skilled placement. At discharge patient will continue with skilled placement to continue rehabilitation before going home. Recommend follow-up with surgery in 1 week to follow his hospitalization. Postoperative care noted. No heavy lifting, pushing or pulling. Recommend incentive spirometer. We will continue with multivitamin daily. Recommend to recheck labCBC, CMP in 1 week to monitor her progress. Recommend follow-up with PCP to follow-up his hospitalization in 1 week. For her diabetes hemoglobin A1c 8.5. At discharge will continue with Lantus 10 units subcu daily. Recommend to monitor blood sugars least twice daily. Recommend to maintain blood sugars less than 140 fasting and less than 200 after meals. If blood sugars remain above 200 further adjustment in her medication may be required. This can be done with the help of her PCP. Recommend to recheck hemoglobin A1c every 3 months. Recommend follow-up with PCP after hospitalization and rehab to further monitor her diabetes. Patient with hypertension. Overall stable. At discharge we will continue with Norvasc 5 mg daily and losartan 100 mg daily. Recommend to maintain blood pressure less than 130/80. Patient with hypothyroidism. At discharge we will continue with levothyroxine 250 mcg daily. Commend to recheck TSH and free T4 in 4 to 6 weeks to monitor progress. Patient had elevated liver function likely related to above. Liver function tests have improved. Recommend to recheck labCMP in 1 to 2 weeks to monitor resolution. Patient with chronic pain. X-ray showed no evidence of fracture. Patient will continue with physical therapy. Fall precautions in place. Recommend outpatient orthopedic evaluation as an outpatient to further address. Vital Signs/Physical Exam: Temp Pulse Resp BP Pulse Ox 98.1 F 55 19 119/62 97 07/27/21 15:01 07/27/21 15:01 07/27/21 15:01 07/27/21 15:01 07/27/21 15:01 General: Alert, In no apparent distress, Oriented x3, Cooperative HEENT: Atraumatic Neck: Supple Respiratory: Clear to auscultation bilaterally, Normal air movement Cardiovascular: Normal pulses, Regular rate/rhythm Gastrointestinal: Normal bowel sounds, No rebound, No guarding, Other (Postop changes noted) Neurological: Normal speech, Normal strength at 5/5 x4 extr, Normal tone, Normal affect Laboratory Data at Discharge: WBC 5.40 K/uL (4.3-10.9) 07/27/21 03:28 Hgb 9.5 g/dL (12.0-15.0) L 07/27/21 03:28 Hct 30.4 % (36.0-45.0) L 07/27/21 03:28 Plt Count 228 K/uL (152-406) 07/27/21 03:28 Sodium 141 mmol/L (136-145) 07/27/21 03:28 Potassium 4.3 mmol/L (3.5-5.1) 07/27/21 03:28 BUN 9 mg/dL (7-18) 07/27/21 03:28 Creatinine 0.59 mg/dL (0.55-1.3) 07/27/21 03:28 Glucose 131 mg/dL (74-106) H 07/27/21 03:28 Magnesium 1.9 mg/dL (1.8-2.4) 07/27/21 03:28 Total Bilirubin 0.3 mg/dL (0.2-1.0) 07/27/21 03:28 AST 36 U/L (15-37) 07/27/21 03:28 ALT 96 U/L (12-78) H 07/27/21 03:28 Alkaline Phosphatase 1230 U/L (45-117) H 07/27/21 03:28 Triglycerides 60 mg/dL (<150) 07/17/21 01:33 Cholesterol 102 mg/dL (<200) 07/17/21 01:33 HDL Cholesterol 58 mg/dL (40-60) 07/17/21 01:33 Cholesterol/HDL Ratio 1.76 07/17/21 01:33 Lipase 110 U/L (73-393) 07/16/21 11:25 Home Medications: Amlodipine [Norvasc*] 5 mg PO DAILY 07/17/21 Levothyroxine Sodium [Levothyroxine] 50 mcg PO DAILY 07/17/21 Levothyroxine Sodium [Levothyroxine] 200 mcg PO DAILY 07/17/21 Losartan Potassium 100 mg PO DAILY 07/17/21 Insulin Glargine,Hum.rec.anlog [Semglee] 10 unit SQ BEDTIME #1 vial 07/27/21 Multivitamin 1 each PO DAILY #90 tablet 07/27/21 New Medications: Multivitamin 1 each PO DAILY #90 tablet Insulin Glargine,Hum.rec.anlog [Semglee] 10 unit SQ BEDTIME #1 vial Physician Discharge Instructions: No heavy lifting Dry gauze to wound daily May shower Patient was admitted for severe constipation and abdominal pain. Patient found to have incarcerated umbilical hernia. She was also found to have DKA. Patient was admitted for treatment. Her DKA was treated. Patient was seen and evaluated by surgery. Surgery was recommended. Patient had laparoscopic assisted repair of incarcerated umbilical hernia. Patient has done well. DKA has resolved. Patient is currently tolerating diet. Patient was evaluated for skilled placement. At discharge patient will continue with skilled placement to continue rehabilitation before going home. Recommend follow-up with surgery in 1 week to follow his hospitalization. Postoperative care noted. No heavy lifting, pushing or pulling. Recommend incentive spirometer. We will continue with multivitamin daily. Recommend to recheck labCBC, CMP in 1 week to monitor her progress. Recommend follow-up with PCP to follow-up his hospitalization in 1 week. For her diabetes hemoglobin A1c 8.5. At discharge will continue with Lantus 10 units subcu daily. Recommend to monitor blood sugars least twice daily. Recommend to maintain blood sugars less than 140 fasting and less than 200 after meals. If blood sugars remain above 200 further adjustment in her medication may be required. This can be done with the help of her PCP. Recommend to recheck hemoglobin A1c every 3 months. Recommend follow-up with PCP after hospitalization and rehab to further monitor her diabetes. Patient with hypertension. Overall stable. At discharge we will continue with Norvasc 5 mg daily and losartan 100 mg daily. Recommend to maintain blood pressure less than 130/80. Patient with hypothyroidism. At discharge we will continue with levothyroxine 250 mcg daily. Commend to recheck TSH and free T4 in 4 to 6 weeks to monitor progress. Patient had elevated liver function likely related to above. Liver function tests have improved. Recommend to recheck labCMP in 1 to 2 weeks to monitor resolution. Patient with chronic pain. X-ray showed no evidence of fracture. Patient will continue with physical therapy. Fall precautions in place. Recommend outpatient orthopedic evaluation as an outpatient to further address. Diet: AHA Activity: Fall precautions Followup: OOT,OOT [Primary Care Provider] - Jason Parra MD [ACTIVE - CAN ADMIT] - 1-2 Weeks Time spent managing pt's care (in minutes): 55
[2021-07-27] MEDS: LOSARTAN POTASSIUM 50 MG TABLET PO SCH (21:14)
[2021-07-27] MEDS: INSULIN GLARGINE 100 UNIT/ML SQ SCH (21:15)
[2021-07-27] MEDS: FAMOTIDINE 20 MG TAB PO PRN (21:26)
[2021-07-27 22:35] VITALS: BP 133/64; TEMP 98.1
== END 2021-07-27 23:45 | DRG 353 ==
LOC: ER 10:04 → ERHOLD 16:52 → 2ND 07-18 14:10 → ERHOLD 07-19 16:35 → 4TH 07-20 18:33
PROVIDERS: ADMIT Internal Medicine; ATTEND Family Medicine
PROC: 0WQF4ZZ Repair Abdominal Wall, Percutaneous Endoscopic Approach (ICD-10-PCS; principal; 2021-07-18 14:30)
DX: K42.0 Umbilical hernia with obstruction, without gangrene (principal); E10.10 Type 1 diabetes mellitus with ketoacidosis without coma; K59.00 Constipation, unspecified; M25.562 Pain in left knee; M25.561 Pain in right knee; E03.9 Hypothyroidism, unspecified; M54.9 Dorsalgia, unspecified; R94.5 Abnormal results of liver function studies; Z91.048 Other nonmedicinal substance allergy status; Z85.850 Personal history of malignant neoplasm of thyroid; Z90.49 Acquired absence of other specified parts of digestive tract; Z79.890 Hormone replacement therapy; Z79.899 Other long term (current) drug therapy; Z20.822 Contact with and (suspected) exposure to COVID-19; Z79.4 Long term (current) use of insulin
CPT/HCPCS: 36415; 51702; 74176; 80048; 80053; 80061; 80076; 81003; 82010; 82805; 82947; 83036; 83605; 83690; 83735; 83880; 83930; 84132; 84145; 85025; 87040; 88302; 94010; 97116; 97161; 97530; 97760; 99285; J0694; J1100; J1170; J1650; J1720; J2250; J2270; J2405; J2543; J2704; J2710; J3010; J3480; J7030; J7040; J7042; J7799; U0003